=== PATIENT | male | born 1980 | race Caucasian/White ===

== ENCOUNTER → 2019-04-04 12:07 | Outpatient (CLI) | payer MEDICAID, SELFPAY ==
[2019-04-04 13:18] LABS: Basophils % 0.6 % (0.1-2.0); Eosinophils # 0.2 K/mm3 (0.0-0.4); Hematocrit 36.5 % (42.0-52.0); Lymphocytes # 1.7 K/mm3 (0.7-4.5); Lymphocytes % 43.1 % (10-50); Mean Corpuscular Hemoglobin 21.3 pg (27.0-31.2); Mean Corpuscular Volume 70.8 fl (80-94); Mean Platelet Volume 7.7 fl (7.4-10.4); Monocytes # 0.2 K/mm3 (0.1-1.0); Monocytes % 5.4 % (1.7-9.3); Neutrophils # 1.8 K/mm3 (1.8-7.8); Neutrophils % 45.9 % (37.0-80.0); Platelet Count 182 K/mm3 (142-424); Red Blood Count 5.16 M/mm3 (4.60-6.20); Red Cell Distribution Width 15.6 % (11.5-17.5); White Blood Count 3.8 K/mm3 (4.8-10.8)
[2019-04-04 13:46] LABS: Ferritin 6 ng/mL (8-388)
[2019-04-05 07:13] LABS: Iron 43 ug/dL (38-169); UIBC 442 ug/dL (111-343)
[2019-04-06 17:50] LABS: Iron Saturation 9 % (15-55); Vitamin B12 510 pg/mL (232-1245)
== END ==
PROVIDERS: Visit Provider Internal Medicine Adolescent Medicine
DX: D64.9 Anemia, unspecified (principal)
CPT/HCPCS: 36415; 82607; 82728; 83540; 83550; 85025

== ENCOUNTER → 2019-04-05 10:41 | Outpatient (CLI) | payer MEDICAID, SELFPAY ==
[2019-04-05 10:47] LABS: Adenovirus F 40/41, stool Not Detected (NotDetected); Astrovirus Not Detected (NotDetected); Campylobacter Not Detected (NotDetected); Clostridium Difficile A/B, PCR Not Detected (NotDetected); Cryptosporidium Not Detected (NotDetected); Cyclospora Cayetanesis Not Detected (NotDetected); Entamoeba histolytica Not Detected (NotDetected); Enteroaggregative E coli Not Detected (NotDetected); Enteropathogenic E coli Not Detected (NotDetected); Enterotoxigenic E coli Not Detected (NotDetected); Giardia lamblia Not Detected (NotDetected); Norovirus Not Detected (NotDetected); Plesimonas Shigalloides, PCR Not Detected (NotDetected); Rotavirus A Not Detected (NotDetected); Salmonella, PCR Not Detected (NotDetected); Sapovirus Not Detected (NotDetected); Shiga-like toxin E coli Not Detected (NotDetected); Shigella Enterovasive E coli Not Detected (NotDetected); Vibrio Cholerae Not Detected (NotDetected); Vibrio, PCR Not Detected (NotDetected); Yersinia Entercolitica, PCR Not Detected (NotDetected)
== END ==
PROVIDERS: Visit Provider Surgery
DX: R19.7 Diarrhea, unspecified (principal); K21.9 Gastro-esophageal reflux disease without esophagitis; K62.5 Hemorrhage of anus and rectum; D64.9 Anemia, unspecified; R10.84 Generalized abdominal pain
CPT/HCPCS: 87506

== ENCOUNTER → 2019-04-25 10:51 | Outpatient (CLI) | payer MEDICAID, SELFPAY ==
[2019-04-25 11:19] LABS: Alanine Aminotransferase 30 U/L (12-78); Albumin Level 4.2 gm/dL (3.4-5.0); Albumin/Globulin Ratio 1.2 (1.1-1.8); Alkaline Phosphatase 68 U/L (46-116); Amylase 19 U/L (25-115); Anion Gap 10.5 mEq/L (5-15); Aspartate Amino Transferase 18 U/L (15-37); Bilirubin,Total 0.5 mg/dL (0.2-1.0); Blood Urea Nitrogen 19 mg/dL (7-18); Calcium 8.7 mg/dL (8.5-10.1); Carbon Dioxide 29 mmol/L (21.0-32.0); Chloride 105 mmol/L (98-107); Creatinine,Serum 0.88 mg/dL (0.70-1.30); Estimated Glomerular Filt Rate 97 ml/min (>60); GFR (African American) 117 ML/MIN (>60); Globulin 3.5 gm/dl (1.3-3.2); Glucose 102 mg/dL (74-106); Lipase 92 u/L (73-393); Potassium 4.5 mmoL/L (3.5-5.1); Sodium 140 mmol/L (136-145); Total Protein,Serum 7.7 gm/dL (6.4-8.2)
[2019-04-25 11:33] LABS: Basophils % 0.7 % (0.1-2.0); Eosinophils # 0.3 K/mm3 (0.0-0.4); Eosinophils % 5.8 % (0.1-12.0); Hematocrit 37.1 % (42.0-52.0); Hemoglobin 11.4 g/dL (14.1-18.0); Lymphocytes # 1.6 K/mm3 (0.7-4.5); Lymphocytes % 33.9 % (10-50); Mean Corpuscular HGB Conc 30.7 g/dL (31.8-35.4); Mean Corpuscular Hemoglobin 22.1 pg (27.0-31.2); Mean Platelet Volume 9.7 fl (7.4-10.4); Monocytes # 0.2 K/mm3 (0.1-1.0); Monocytes % 4.7 % (1.7-9.3); Neutrophils # 2.6 K/mm3 (1.8-7.8); Neutrophils % 54.8 % (37.0-80.0); Platelet Count 237 K/mm3 (142-424); Red Blood Count 5.16 M/mm3 (4.60-6.20); Red Cell Distribution Width 15.8 % (11.5-17.5); White Blood Count 4.7 K/mm3 (4.8-10.8)
== END ==
PROVIDERS: Visit Provider Surgery
DX: R10.11 Right upper quadrant pain (principal); K85.90 Acute pancreatitis without necrosis or infection, unspecified; K82.9 Disease of gallbladder, unspecified; R19.7 Diarrhea, unspecified; D12.6 Benign neoplasm of colon, unspecified
CPT/HCPCS: 36415; 80053; 82150; 83690; 85025

== ENCOUNTER → 2019-04-30 09:14 | Outpatient (CLI) | payer MEDICAID, SELFPAY ==
--- NOTE | 2019-04-30 09:15 | US_ITS ---
US gallbladder HISTORY: ITS.REASON: right upper quadrant pain ORDERING PHYSICIAN: Red Dockery MD PATIENT AGE: 38 years Comparison: None FINDINGS: PANCREAS: Unremarkable. No obvious mass or abnormal fluid collection. No ductal dilatation LIVER: No focal liver lesions demonstrated. Homogeneous echogenicity. No intrahepatic biliary ductal dilatation evident RIGHT KIDNEY: Unremarkable. Normal size and echogenicity. No hydronephrosis GALLBLADDER: There are few small hyperechoic areas along the gallbladder wall without shadowing suggesting small polyps. There is also small amount of sludge present within the gallbladder. No shadowing stones are apparent. No gallbladder wall thickening, pericholecystic fluid, or biliary dilatation is evident. IMPRESSION: 1. Small gallbladder polyps with a small amount sludge. 2. No gallstones or other significant anomalies
== END ==
PROVIDERS: PCP Internal Medicine Adolescent Medicine; Visit Provider Surgery
DX: K82.9 Disease of gallbladder, unspecified (principal)
CPT/HCPCS: 76705

== ENCOUNTER → 2019-05-14 09:44 | Outpatient (CLI) | payer MEDICAID, SELFPAY ==
--- NOTE | 2019-05-14 09:44 | FL_ITS ---
FL upper GI small bowel HISTORY: ITS.REASON: abdominal pain, diarrhea ORDERING PHYSICIAN: Red Dockery MD PATIENT AGE: 38 years Comparison: None FINDINGS: Esophagus is normal with smooth rinaldi without thickening or ulcerations or filling defects. There is a small 3 cm sliding-type of hiatal hernia with very mild reflux of the barium from the stomach into the lower esophageal segment. There are no strictures. Air contrast exam of the stomach shows normal peristalsis without ulcerations or filling defects or strictures. The duodenal bulb and duodenal sweep are normal. Contrast reaches the colon by 30 to 45 minutes. There is no bowel wall or fold thickening. There is no dilatation or strictures. There are no definite filling defects. Terminal ileum appears normal. FLUOROSCOPY TIME : 1.5 minutes.. IMPRESSION: Exam is normal except for small sliding-type of hiatal hernia with mild gastroesophageal reflux without indirect evidence of esophagitis.
== END ==
PROVIDERS: PCP Internal Medicine Adolescent Medicine; Visit Provider Surgery
DX: R13.10 Dysphagia, unspecified (principal)
CPT/HCPCS: 74245

== ENCOUNTER → 2019-06-04 15:13 | Outpatient (POV) | payer MEDICAID, SELFPAY ==
[2019-06-04 17:47] LABS: Basophils % 0.4 % (0.1-2.0); Eosinophils # 0.1 K/mm3 (0.0-0.4); Eosinophils % 1.8 % (0.1-12.0); Hematocrit 36.8 % (42.0-52.0); Hemoglobin 11.3 g/dL (14.1-18.0); Lymphocytes % 42.7 % (10-50); Mean Corpuscular HGB Conc 30.7 g/dL (31.8-35.4); Mean Corpuscular Volume 71.7 fl (80-94); Monocytes # 0.2 K/mm3 (0.1-1.0); Monocytes % 4.9 % (1.7-9.3); Neutrophils # 2.3 K/mm3 (1.8-7.8); Neutrophils % 50.1 % (37.0-80.0); Platelet Count 227 K/mm3 (142-424); Red Blood Count 5.13 M/mm3 (4.60-6.20); Red Cell Distribution Width 16.5 % (11.5-17.5); White Blood Count 4.6 K/mm3 (4.8-10.8)
[2019-06-04 19:00] LABS: Alanine Aminotransferase 21 U/L (12-78); Albumin Level 4.3 gm/dL (3.4-5.0); Albumin/Globulin Ratio 1.4 (1.1-1.8); Alkaline Phosphatase 63 U/L (46-116); Anion Gap 12.3 mEq/L (5-15); Aspartate Amino Transferase 11 U/L (15-37); Bilirubin,Total 0.3 mg/dL (0.2-1.0); Blood Urea Nitrogen 11 mg/dL (7-18); Calcium 8.9 mg/dL (8.5-10.1); Carbon Dioxide 29 mmol/L (21.0-32.0); Chloride 106 mmol/L (98-107); Creatinine,Serum 0.88 mg/dL (0.70-1.30); Estimated Glomerular Filt Rate 97 ml/min (>60); Ferritin 5 ng/mL (8-388); GFR (African American) 117 ML/MIN (>60); Globulin 3.1 gm/dl (1.3-3.2); Glucose 85 mg/dL (74-106); Potassium 4.3 mmoL/L (3.5-5.1); Sodium 143 mmol/L (136-145); Total Protein,Serum 7.4 gm/dL (6.4-8.2)
[2019-06-06 08:26] LABS: Iron 22 ug/dL (38-169); UIBC 447 ug/dL (111-343)
[2019-06-06 10:04] LABS: Iron Saturation 5 % (15-55); Vitamin B12 425 pg/mL (232-1245)
== END ==
PROVIDERS: PCP Internal Medicine Adolescent Medicine; Visit Provider Nurse Practitioner Family
DX: R10.84 Generalized abdominal pain (principal); R19.7 Diarrhea, unspecified; D64.9 Anemia, unspecified
CPT/HCPCS: 36415; 80053; 82607; 82728; 83540; 83550; 85025

== ENCOUNTER → 2022-11-29 16:14 | Outpatient (CLI) | payer OTHER, SELFPAY ==
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
== END ==
PROVIDERS: PCP Nurse Practitioner Family; Visit Provider Nurse Practitioner Family
DX: M54.2 Cervicalgia (principal); G89.29 Other chronic pain
CPT/HCPCS: 72040

== ENCOUNTER → 2022-12-02 16:19 | Outpatient (CLI) | payer OTHER, SELFPAY ==
--- NOTE | 2022-12-02 16:20 | MR_ITS ---
PROCEDURE INFORMATION: Exam: MR Cervical Spine Without Contrast Exam date and time: 12/02/2022 4:46 PM Age: 42 years old Clinical indication: Neck pain; Additional info: Neck pain, xray normal TECHNIQUE: Imaging protocol: Magnetic resonance imaging of the cervical spine without contrast. COMPARISON: CR XR CERVICAL SPINE 3V 11/29/2022 4:20 PM FINDINGS: Bones/joints: The cervical spine is straightened with mild kyphosis centered at the C3-C4 level which may be a positional finding or related to spasm. The vertebral body heights are maintained. The discs are diffusely desiccated with mild loss of height. The marrow signal is normal. No acute osseous injury is present. Spinal cord: Normal signal. No cord compression. C2-C3: No significant disc bulge or herniation. No severe spinal canal stenosis. No significant neural foraminal narrowing. C3-C4: C3-C4 minimal right-sided paracentral focal disc protrusion and dorsal endplate osteophyte is seen without significant stenosis of the spinal canal. There is mild narrowing of the left neural foramina due to uncovertebral and facet joint osteophyte. C4-C5: C4-C5 minimal dorsal endplate osteophyte is seen without stenosis of the spinal canal. There is mild narrowing of the anyke-cqruhzm-wjnr-left neural foramen also present. C5-C6: C5-C6 minimal left-sided asymmetric osteophyte and disc material is seen without stenosis of the spinal canal. The left neural foramen is mildly narrowed. C6-C7: C6-C7 diffuse disc bulging and dorsal endplate osteophyte causes mild stenosis of the spinal canal. There is severe left neural foraminal narrowing due to osteophyte. C7-T1: C7-T1 patent spinal canal. There is mild narrowing of the neural foramina due to osteophyte. Soft tissues: Unremarkable. Vasculature: Expected flow voids in the vertebral arteries. IMPRESSION: 1. Multilevel degenerative disc disease of the cervical spine with mild spinal canal stenosis at C6-C7 as described. Severe left C6-C7 neural foraminal narrowing. 2. No acute findings. The cervical spine is straightened with mild kyphosis at the C3-C4 level which may be a positional finding or related to spasm.
== END ==
PROVIDERS: PCP Nurse Practitioner Family; Visit Provider Nurse Practitioner Family
DX: M54.2 Cervicalgia (principal); G89.29 Other chronic pain
CPT/HCPCS: 72141; 76376

== ENCOUNTER → 2022-12-04 08:09 | Outpatient (CLI) | payer OTHER, SELFPAY ==
[2022-12-04 08:19] LABS: Microscopic, Urine URINE MICROSCOPIC (MICROSCOPIC)
[2022-12-04 09:56] LABS: Basophils % 1.1 % (0.1-2.0); Eosinophils # 0.1 K/mm3 (0.0-0.4); Eosinophils % 3.3 % (0.1-12.0); Hemoglobin 11.8 g/dL (14.1-18.0); Lymphocytes # 1.6 K/mm3 (0.7-4.5); Lymphocytes % 42.6 % (10-50); Mean Corpuscular Hemoglobin 24.9 pg (27.0-31.2); Mean Corpuscular Volume 77.8 fl (80-94); Mean Platelet Volume 9.1 fl (7.4-10.4); Monocytes # 0.2 K/mm3 (0.1-1.0); Monocytes % 5.3 % (1.7-9.3); Neutrophils # 1.8 K/mm3 (1.8-7.8); Neutrophils % 47.7 % (37.0-80.0); Platelet Count 251 K/mm3 (142-424); Red Blood Count 4.75 M/mm3 (4.60-6.20); White Blood Count 3.8 K/mm3 (4.8-10.8)
[2022-12-04 09:58] LABS: Appearance,Urine CLEAR (Clear); Bilirubin,Urine Negative (Negative); Blood, Urine Negative (Negative); Color,Urine YELLOW (Yellow); Glucose,Urine (UA) Negative (Negative); Ketones,Urine Negative (Negative); Leukocyte Esterase,Urine Negative (Negative); Nitrate,Urine Negative (Negative); PH,Urine 6.5 (5.0-8.5); Protein,Urine Negative (Negative); Specific Gravity, Urine <= 1.005 (1.005-1.030); Urobilinogen,Urine 0.2 EU/dl (0.2)
[2022-12-04 10:11] LABS: Bacteria,Urine Trace /lpf; Squamous Epithelial Cell,Urine Occasional #/hpf (0-5)
[2022-12-04 10:16] LABS: Alanine Aminotransferase 26 U/L (12-78); Albumin Level 4.7 g/dl (3.5-5.0); Alkaline Phosphatase 44 U/L (38-126); Anion Gap 3.8 mEq/L (5-15); Aspartate Amino Transferase 30 U/L (17-59); Bilirubin,Total 0.4 mg/dl (0.2-1.3); Blood Urea Nitrogen 14 mg/dl (9-20); Calcium 8.8 mg/dl (8.4-10.2); Carbon Dioxide 28 mmol/L (22.0-30.0); Chloride 106 mmol/L (98-107); Chol/HDL Ratio 3.8 (1-3.5); Cholesterol 137 mg/dl (140-200); Estimated Glomerular Filt Rate 106 ml/min (>60); GFR (African American) 128 ML/MIN (>60); Globulin 2.4 g/dL (1.3-3.2); Glucose 94 mg/dl (74-100); HDL Cholesterol 36 mg/dl (40-60); Potassium 4.8 mmoL/L (3.5-5.1); Sodium 133 mmol/L (136-145); Total Protein,Serum 7.1 g/dl (6.3-8.2); Triglycerides 91 mg/dl (30-150); VLDL Cholesterol 18 mg/dL (0-40)
[2022-12-04 10:20] LABS: Erythrocyte Sedimentation Rate 9 mm/hr (0-15)
[2022-12-04 10:31] LABS: Direct LDL Cholesterol 90.89 mg/dL (100-129)
[2022-12-04 10:45] LABS: C-Reactive Protein 0.6 mg/L (0-4); Thyroid Stimulating Hormone 0.77 uIU/mL (0.465-4.68)
[2022-12-06 16:01] LABS: Iron 27 ug/dL (49-181)
[2022-12-06 16:38] LABS: Ferritin 5.24 ng/ml (17.9-464)
[2022-12-06 18:08] LABS: Total Iron Binding Capacity 485 ug/dL (261-462)
== END ==
PROVIDERS: PCP Nurse Practitioner Family; Visit Provider Nurse Practitioner Family
DX: G89.29 Other chronic pain (principal); M54.2 Cervicalgia; Z76.89 Persons encountering health services in other specified circumstances; Z13.1 Encounter for screening for diabetes mellitus; K64.9 Unspecified hemorrhoids
CPT/HCPCS: 36415; 80053; 80061; 81001; 82728; 83036; 83540; 83550; 84443; 85025; 85651; 86140

== ENCOUNTER 2022-12-14 08:22 | Day surgery (SDC) | payer OTHER, SELFPAY ==
[2022-12-10 14:47] VITALS: BMI 31.6
[2022-12-14 08:35] VITALS: BP 148/85; PULSE 81; RESP 18; TEMP 36.6; O2SAT 100
[2022-12-14 08:53] VITALS: O2SAT 100
--- NOTE | 2022-12-14 08:53 | P.PN_ITS ---
[facility] Disclaimer: The information contained in this section may have been updated after the patient was seen, as this information can be updated by other users. Medical History Degenerative disc disease Diverticulosis Irritable bowel disease Migraine Surgical History H/O hernia repair History of colonoscopy Family History Other No significant family history Social History Smoking Status: Never smoker alcohol intake: current substance use type: denies use current occupational status: employed Travel in the last 8 weeks: None marital status: caffeine: Yes [facility] Anesthesia Checklist Patient Identification Patient Identification: Arm Band Structural Data Admitted From: Home Planned Operative Procedure/s: colonoscopy Consent for Planned Operative Procedure(s) Verified: Yes Verified Documents: Surgical Consent and History and Physical NPO Status Verified Time NPO: 00:00 Additional verifications Anesthesia Reactions: No Airway Assessment C-Spine Mobility Assessed: Yes TMJ Mobility Assessed: Yes Dentition: Good Dentition Neurological Assessment Level of Consciousness: Awake and Alert Anesthesia Plan Anesthesia Risk discussed: Yes Anesthesia Plan: Verified ASA Class: II Anesthesia Type: MAC
--- NOTE | 2022-12-14 09:16 | HMH.SCOPE ---
Procedure: Date: 12/14/22 Patient Date of :: 1980 Procedure Performed:: Colonoscopy Indications:: Bleeding hemorrhoids History of colon polyps Performing Provider:: Red Dockery MD Referring Provider:: Eleni Bethea APRN Sedation:: Monitored anesthesia care Procedure:: After informed consent was obtained the patient was taken to the endoscopy suite. Sedation ensued after the patient was transferred to the left lateral decubitus position. Pulse, blood pressure, and oxygen saturation were monitored throughout the procedure. Digital rectal exam revealed no significant abnormality. The colonoscope was placed in position. The entire colon was evaluated. The colonoscope was carefully removed and the patient was transferred to recovery in stable condition. Please see findings and specimens below for detail. Findings:: Bowel preparation good Minimal hemorrhoidal cushions Perianal soft tissue edema Few mild/early sigmoid diverticuli Moderate tortuosity Specimens:: None Recommendations:: Repeat colonoscopy in 3-5 years secondary to history of polyps diagnosed at an early age May benefit from examination under anesthesia with perianal biopsy secondary to recent soft tissue edema Consider additional anti-inflammatory therapy May ultimately benefit from endorectal ultrasound and/or MRI (hold off for now) Complications:: No immediate Estimated blood obtained (mL): 0
[2022-12-14 09:20] VITALS: BP 123/71; PULSE 79; RESP 15; TEMP 36.2; O2SAT 97
[2022-12-14 09:30] VITALS: BP 117/80; PULSE 81; RESP 16; O2SAT 96
[2022-12-14 09:40] VITALS: BP 125/7; PULSE 76; RESP 16; O2SAT 97
[2022-12-14 09:52] VITALS: BP 124/80; PULSE 80; RESP 17; O2SAT 100
== END 2022-12-14 09:54 | disposition home or self-care (01) ==
PROVIDERS: PCP Nurse Practitioner Family; Visit Provider Surgery
PROC: 0DJD8ZZ Inspection of Lower Intestinal Tract, Via Natural or Artificial Opening Endoscopic (ICD-10-PCS; CPT 45378; principal; 2022-12-14 09:30)
DX: Z12.11 Encounter for screening for malignant neoplasm of colon (principal); Z86.010 Personal history of colon polyps; K64.9 Unspecified hemorrhoids; Z79.899 Other long term (current) drug therapy
CPT/HCPCS: 45378

== ENCOUNTER → 2022-12-31 08:47 | Outpatient (CLI) | payer OTHER, SELFPAY ==
--- NOTE | 2022-12-31 08:47 | CT_ITS ---
FINAL REPORT TECHNIQUE: Axial CT images of the abdomen and pelvis were obtained after the administration of oral and iv contrast. Coronal reformatted images were also obtained and reviewed.This study was performed with techniques to keep radiation doses as low as reasonably achievable (ALARA). Individualized dose reduction techniques using automated exposure control or adjustment of mA and/or kV according to the patient''s size were employed. CLINICAL HISTORY: Perianal Inflammation COMPARISON: none FINDINGS: CT OF THE ABDOMEN AND PELVIS WITH CONTRAST Abdomen: The lung bases are clear. The heart is normal in size. There is a 10 mm cyst in the medial right hepatic lobe. The spleen is unremarkable. No adrenal mass is present. The pancreas has an unremarkable appearance. The kidneys are normal, without evidence of mass or hydronephrosis. The aorta is normal in caliber. There is no free fluid or adenopathy. No mass or abnormal fluid collection is seen. Pelvis: The appendix is normal. The urinary bladder is unremarkable. There is a focus of presumed fluid in the right inguinal region measuring 25 mm of uncertain significance, may be post inflammatory or postoperative. There is no evidence of mass or adenopathy. There is no evidence of bowel obstruction. Probable right L5 pars defect. IMPRESSION: Presumed fluid right inguinal region of uncertain significance, may be post inflammatory or postoperative. Hepatic 10 mm cyst. Reviewed, Interpreted and Dictated by Derek Limon III, MD Transcribed by Carolyn Kennedy Authenticated and [facility]
== END ==
PROVIDERS: PCP Nurse Practitioner Family; Visit Provider Surgery
DX: K64.8 Other hemorrhoids (principal)
CPT/HCPCS: 74177; Q9967

== ENCOUNTER 2023-10-26 13:38 | Outpatient (CLI) | payer OTHER, SELFPAY ==
[2023-10-26 13:41] LABS: Troponin I < 0.01 ng/ml (0.00-0.034)
== END 2023-10-26 23:59 ==
LOC: LAB.DROPOF 13:38
PROVIDERS: PCP Nurse Practitioner Family; Visit Provider Internal Medicine
DX: R07.89 Other chest pain (principal)
CPT/HCPCS: 84484

== ENCOUNTER 2024-05-18 13:31 | Outpatient (CLI) | payer OTHER, SELFPAY ==
[2024-05-18 13:59] LABS: Eosinophils # 0.1 K/mm3 (0.0-0.4); Eosinophils % 2.5 % (0.1-12.0); Lymphocytes # 1.2 K/mm3 (0.7-4.5); Lymphocytes % 37.4 % (10-50); Mean Corpuscular HGB Conc 29.5 g/dL (31.8-35.4); Mean Corpuscular Hemoglobin 17.8 pg (27.0-31.2); Mean Corpuscular Volume 60.2 fl (80-94); Monocytes # 0.2 K/mm3 (0.1-1.0); Monocytes % 5.3 % (1.7-9.3); Neutrophils # 1.7 K/mm3 (1.8-7.8); Neutrophils % 53.7 % (37.0-80.0); Platelet Count 252 K/mm3 (142-424); Red Blood Count 3.17 M/mm3 (4.60-6.20); Red Cell Distribution Width 19.5 % (11.5-17.5); White Blood Count 3.1 K/mm3 (4.8-10.8)
[2024-05-18 14:14] LABS: Alanine Aminotransferase 21 U/L (12-78); Albumin Level 4.3 g/dl (3.5-5.0); Albumin/Globulin Ratio 1.7 (1.1-1.8); Alkaline Phosphatase 44 U/L (38-126); Anion Gap 11.4 mEq/L (5-15); Aspartate Amino Transferase 28 U/L (17-59); Bilirubin,Total 0.6 mg/dl (0.2-1.3); Blood Urea Nitrogen 15 mg/dl (9-20); Calcium 8.9 mg/dl (8.4-10.2); Carbon Dioxide 24 mmol/L (22.0-30.0); Chloride 108 mmol/L (98-107); Chol/HDL Ratio 3.8 (1-3.5); Cholesterol 128 mg/dl (140-200); Estimated Glomerular Filt Rate 123 ml/min (>60); GFR (African American) 149 ML/MIN (>60); Globulin 2.5 g/dL (1.3-3.2); Glucose 95 mg/dl (74-100); HDL Cholesterol 34 mg/dl (40-60); Magnesium 2.2 mg/dl (1.6-2.3); Potassium 4.4 mmoL/L (3.5-5.1); Sodium 139 mmol/L (136-145); Total Protein,Serum 6.8 g/dl (6.3-8.2); Triglycerides 135 mg/dl (30-150); VLDL Cholesterol 27 mg/dL (0-40)
[2024-05-18 14:15] LABS: Hematocrit 19.1 % (42.0-52.0)
[2024-05-18 14:21] LABS: Hemoglobin 5.6 g/dL (14.1-18.0)
[2024-05-18 14:26] LABS: C-Reactive Protein 0.7 mg/L (0-4); Direct LDL Cholesterol 74.43 mg/dL (100-129)
[2024-05-18 14:29] LABS: Iron 31 ug/dL (49-181)
[2024-05-18 14:38] LABS: Total Iron Binding Capacity 481 ug/dL (261-462)
[2024-05-18 14:46] LABS: Thyroid Stimulating Hormone 1.02 uIU/mL (0.465-4.68)
[2024-05-18 15:05] LABS: Ferritin 3.61 ng/ml (17.9-464); Vitamin B12 799 pg/mL (239-931)
== END 2024-05-18 23:59 | disposition home or self-care (01) ==
LOC: LAB.DROPOF 13:31
PROVIDERS: PCP Nurse Practitioner Family; Visit Provider Nurse Practitioner Family
DX: D64.9 Anemia, unspecified (principal); R51.9 Headache, unspecified; R07.89 Other chest pain
CPT/HCPCS: 80050; 80053; 80061; 82607; 82728; 83540; 83550; 83735; 84443; 85025; 86140

== ENCOUNTER 2024-05-18 14:46 | Observation (INO) | payer SELFPAY ==
[2024-05-18] VITALS (26 sets, daily range): BP systolic 117–147; BP diastolic 71–89; PULSE 78–103; RESP 18–20; TEMP 36.6–36.9; O2SAT 98–100; BMI 43.4; BMI 32.3
--- NOTE | 2024-05-18 15:26 | ED_ITS ---
Discharge Plan Disposition Patient Disposition: Admitted Clinical Impressions Clinical Impression: Acute lower gastrointestinal bleeding, Symptomatic anemia Discharge ED Provider: Katie Maradiaga General Adult HPI General Chief complaint: Recheck/Abnormal Lab/Rx Stated complaint: critical lab sent by [facility] Primary Time Seen by Provider: 05/18/24 15:03 Mode of Arrival: Ambulatory Source of Information: Patient Limitations: No Limitations Description of Symptoms (Recalled from ER Triage Doc. by RN): pt to ed c/o abnormal labs. pt states he has been having rectal bleeding throughout the week. pt states pcp abbie blood and he was called to come to to the ed for eval. History of Present Illness HPI narrative: This patient is a 43-year-old male with a history of hemorrhoids and diverticulosis presenting to the emergency department for evaluation with concern for abnormal labs. Patient reports that since Tuesday, he has been having bright red blood per rectum that fills the toilet bowl anytime he goes to the bathroom. He notes that he does have a chronic history of hemorrhoids and feels that they have been flared up. He states he had multiple colonoscopies in the past with Dr. Dockery for these issues. He notes that he has been feeling very lightheaded and like he could pass out. Given this, he went to his primary care provider's office who obtained labs as well as EKG. He reports that EKG was normal, however his hemoglobin came back dangerously low. On medical record review, his hemoglobin is 5.6 from a baseline of around 11-12. He denies having issues with anemia in the past and denies any prior history of blood transfusion. He denies any other notable sources of bleeding. He denies any fevers, chills, nausea, vomiting, abdominal pain, or significant rectal pain. Stool itself is not significantly changed, just the bright red blood noted to be accompanying the stool. Related Data Home Medications ?Medication ?Instructions ?Recorded ?Confirmed ascorbate calcium (vitamin C) 500 500 mg PO DAILY Supplement 11/29/22 05/18/24 mg tablet multivitamin (Daily Multi-Vitamin 1 tab PO DAILY Supplement 11/29/22 05/18/24 tablet) Allergies Allergy/AdvReac Type Severity Reaction Status Date / Time No Known Drug Allergies Allergy Unknown Verified 05/18/24 09:08 [NKDA] [facility] Disclaimer: The information contained in this section may have been updated after the patient was seen, as this information can be updated by other users. Medical History Stressful life event affecting family Irritable bowel disease Diverticulosis Degenerative disc disease Migraine Surgical History History of colonoscopy H/O hernia repair Family History Other No significant family history Social History (Updated 05/18/24 @ 16:51 by Jreemy Cavazos RN) Smoking Status: Never smoker second hand exposure: No alcohol intake: current alcohol intake frequency: a few times a month counseling given: No substance use type: denies use current occupational status: employed Travel in the last 8 weeks: None adopted: No caregiver/support person: Yes (for his kids) foster care: No household members: spouse housing: house lives independently: Yes marital status: number of children: 3 number of grandchildren: 0 Hx Recent Travel: No caffeine: Yes physical activity: none nicholas/muslim: Jehovah'[employer] Witness special nicholas needs: No working smoke detector in home: Yes fire extinguisher in home: Yes carbon monox detector in home: Yes do you feel safe at home: Yes victim of physical abuse: No victim of emotional abuse: No victim of sexual abuse: No would you like helpful sources: No ROS Obtained: Yes All systems reviewed & no additional complaints except as documented Physical Exam General General appearance: alert and in no apparent distress Head Head exam: atraumatic and normocephalic Eye Eye exam: Present normal appearance, PERRL and EOMI ENT ENT exam: Present normal exam, normal oropharynx, mucous membranes moist and normal external ear exam Neck Neck exam: Present normal inspection, full ROM and trachea midline; Absent tenderness Chest Chest inspection: Present normal inspection and symmetric chest wall rise; Absent tenderness Respiratory Respiratory exam: Present normal lung sounds bilaterally; Absent respiratory distress, wheezes, stridor or accessory muscle use Cardiovascular Cardiovascular exam: Present normal rhythm and tachycardia Abdominal Exam Abdominal exam: Present soft; Absent distention, tenderness or guarding Extremities Exam Extremities exam: Present normal inspection, full ROM and normal capillary refill; Absent tenderness or edema Back Exam Back exam: Present normal inspection and full ROM; Absent tenderness Neurological Exam Neurological exam: Present alert, oriented X3, CN II-XII intact and normal gait; Absent motor sensory deficit Psychiatric Psychiatric exam: Present normal affect and normal mood Skin Skin exam: Present warm, dry and pallor Medical Decision Making Medical Records Medical records reviewed: Yes I reviewed the patient's medical records. Marv Inquiry Pt receiving controlled substance: No Vital Signs: 05/18/24 15:10 05/18/24 15:30 05/18/24 16:00 Temperature 98.2 F Temperature Source Oral Pulse Rate 99 H 95 H Pulse Rate [Left Radial] 100 H Respiratory Rate 20 Blood Pressure 130/78 117/78 Blood Pressure [Right Arm] 130/87 Blood Pressure Mean [Right Arm] 101 Blood Pressure Source Blood Pressure Position 02 Sat by Pulse Oximetry 100 100 98 Oxygen Delivery Method Room Air Room Air Room Air 05/18/24 16:31 05/18/24 16:35 Temperature 98.2 F Temperature Source Oral Pulse Rate 88 92 H Pulse Rate [Left Radial] Respiratory Rate 18 Blood Pressure 147/86 H 147/86 H Blood Pressure [Right Arm] Blood Pressure Mean [Right Arm] Blood Pressure Source Automatic Cuff Blood Pressure Position Sitting 02 Sat by Pulse Oximetry 100 Oxygen Delivery Method Room Air Lab Data Lab results reviewed: Yes I reviewed the patient's lab results. Lab Results 05/18/24 15:30: WBC 3.1 L, RBC 3.37 L, Hgb 5.6 L*, Hct 20.0 L*, MCV 59.4 L, MCH 16.5 L, MCHC 27.8 L, RDW 19.7 H, Plt Count 238, MPV 9.6, Neut % (Auto) 53.8, Lymph % (Auto) 36.4, Ashe % (Auto) 5.9, Eos % (Auto) 2.7, Baso % (Auto) 1.2, N eut # (Auto) 1.7 L, Lymph # (Auto) 1.1, Ashe # (Auto) 0.2, Eos # (Auto) 0.1, Baso # (Auto) 0.0, Retic Count (auto) 3.6 H, PT 11.2, INR 1.00, APTT 23.6, Sodium 139, Potassium 3.6, Chloride 108 H, Carbon Dioxide 25, Anion Gap 9.6, BUN 13, Creatinine 0.80, Estimated Creat Clear 88, Estimated GFR 106, Est GFR ( Amer) 128, Glucose 120 H D, Calcium 8.9, Total Bilirubin 0.4, AST 26, ALT 23, Alkaline Phosphatase 40, Lactate Dehydrogenase 171 L, Total Protein 6.7, Albumin 4.4, Globulin 2.3, Albumin/Globulin Ratio 1.9 H, Blood Type A Positive, Antibody Screen Negative, Crossmatch (AHG) See Detail 05/18/24 15:30 05/18/24 15:30 Orders (Tests/Meds): ED MEDICATIONS Generic Name Dose Route Start Last Admin Trade Name Freq PRN Reason Stop Dose Admin Sodium Chloride 250 mls @ 25 mls/hr 05/18/24 16:00 Sod Chlor 0.9% 250ml Bag IV 05/19/24 15:59 .Q10H AIMEE ORDERS Category Date Time Status Blood transfusion [Red Blood Cells] Stat BBK 05/18/24 15:30 Results Type and Screen Stat BBK 05/18/24 15:30 Results General Surgery Consult [Consult to General Surgery] [ Cons 05/18/24 16:22 Ordered CONS] Stat Surgery Consult (on-call) [Consult to On-Call Gen'l Cons 05/18/24 16:24 Ordered Surgeon] [CONS] Routine Activated Partial Thrombo Time Stat Lab 05/18/24 15:30 Completed Complete Blood Count Auto Diff AMLAB Lab 05/19/24 06:00 Ordered Complete Blood Count Auto Diff Stat Lab 05/18/24 15:30 Completed Comprehensive Metabolic Panel AMLAB Lab 05/19/24 06:00 Ordered Comprehensive Metabolic Panel Stat Lab 05/18/24 15:30 Completed Haptoglobin Stat Lab 05/18/24 15:40 Received LDH [Lactate Dehydrogenase] Stat Lab 05/18/24 15:30 Completed Magnesium AMLAB Lab 05/19/24 06:00 Ordered PT INR [Prothrombin Time INR] Stat Lab 05/18/24 15:30 Completed Reticulocyte % (Auto) Stat Lab 05/18/24 15:30 Completed Medical Decision Narrative: In summary, this patient is a 43-year-old male presenting to the Emergency Department for evaluation of low hemoglobin at 5.6 in the setting of rectal bleeding. Differential diagnoses considered include but are not limited to symptomatic anemia, hemorrhoids, lower GI bleed, upper GI bleed, hemolysis. Ruling out the most morbid conditions drove assessment. I reviewed patient's past medical records and noted previous evaluations by Dr. Dockery. Evaluation 01/13 after colonoscopy noted that the colonoscopy demonstrated polyps, perianal soft tissue edema, hemorrhoidal cushions, and sigmoid diverticula. On exam, the patient is pale and mildly tachycardic, but otherwise he is nontoxic-appearing with reassuring vital signs. Small amount of bright red blood per rectum on digital rectal exam with palpable hemorrhoids, but no obvious active hemorrhage. he is not hypotensive. Abdominal exam is benign with no tenderness. Workup included CBC, CMP, PT, PTT, type and screen, reticulocyte count, LDH, haptoglobin. Consent was obtained for blood transfusion, and patient does elect to proceed with this if indicated based on repeat lab evaluation. On reassessment, the patient is resting comfortably. Repeat hemoglobin remains low. He also has mild leukopenia. Ultimately, I had an interactive discussion with Dr. Dockery with general surgery who advised the patient be admitted for symptomatic anemia in the setting of lower GI bleed. I had an interactive discussion with the hospitalist who admitted the patient for further evaluation and management. Patient admitted in stable condition. Critical Care Critical Care Time Critical Care Time: No
[2024-05-18 15:41] LABS: Basophils % 1.2 % (0.1-2.0); Eosinophils # 0.1 K/mm3 (0.0-0.4); Eosinophils % 2.7 % (0.1-12.0); Lymphocytes # 1.1 K/mm3 (0.7-4.5); Lymphocytes % 36.4 % (10-50); Mean Corpuscular HGB Conc 27.8 g/dL (31.8-35.4); Mean Corpuscular Hemoglobin 16.5 pg (27.0-31.2); Mean Corpuscular Volume 59.4 fl (80-94); Mean Platelet Volume 9.6 fl (7.4-10.4); Monocytes # 0.2 K/mm3 (0.1-1.0); Monocytes % 5.9 % (1.7-9.3); Neutrophils # 1.7 K/mm3 (1.8-7.8); Neutrophils % 53.8 % (37.0-80.0); Platelet Count 238 K/mm3 (142-424); Red Blood Count 3.37 M/mm3 (4.60-6.20); Red Cell Distribution Width 19.7 % (11.5-17.5); Reticulocyte % (Auto) 3.6 % (0.9-3.2); White Blood Count 3.1 K/mm3 (4.8-10.8)
[2024-05-18 15:44] LABS: Albumin Level 4.4 g/dl (3.5-5.0); Chloride 108 mmol/L (98-107); Sodium 139 mmol/L (136-145)
[2024-05-18 15:45] LABS: Potassium 3.6 mmoL/L (3.5-5.1)
[2024-05-18 15:47] LABS: Alanine Aminotransferase 23 U/L (12-78); Anion Gap 9.6 mEq/L (5-15); Aspartate Amino Transferase 26 U/L (17-59); Blood Urea Nitrogen 13 mg/dl (9-20); Carbon Dioxide 25 mmol/L (22.0-30.0); Creatinine Clearance Estimated 88 mL/min (50-200); Estimated Glomerular Filt Rate 106 ml/min (>60); GFR (African American) 128 ML/MIN (>60)
[2024-05-18 15:48] LABS: Albumin/Globulin Ratio 1.9 (1.1-1.8); Alkaline Phosphatase 40 U/L (38-126); Bilirubin,Total 0.4 mg/dl (0.2-1.3); Calcium 8.9 mg/dl (8.4-10.2); Globulin 2.3 g/dL (1.3-3.2); Glucose 120 mg/dl (74-100); Total Protein,Serum 6.7 g/dl (6.3-8.2)
[2024-05-18 15:51] LABS: Activated Partial Thrombo Time 23.6 seconds (22.8-30.6); Prothrombin Time 11.2 seconds (10.1-12.5)
[2024-05-18 15:55] LABS: Lactate Dehydrogenase 171 U/L (313-618)
[2024-05-18 16:05] LABS: Hemoglobin 5.6 g/dL (14.1-18.0)
--- NOTE | 2024-05-18 16:15 | PC.NURSE ---
SURGEON QUALITY ANALYST/TECHNICAL WRITER PAGED
--- NOTE | 2024-05-18 16:20 | PC.NURSE ---
DR JUAN SPEAKING WITH DR VELÁZQUEZ
--- NOTE | 2024-05-18 16:23 | PC.NURSE ---
DR JUAN SPEAKING WITH DR BRIDGES
--- NOTE | 2024-05-18 16:26 | PC.NURSE ---
[employer] NOTIFIED OF ADMISSION
--- NOTE | 2024-05-18 16:34 | PC.NURSE ---
REPORT CALLED TO OSBALDO MORAN
--- NOTE | 2024-05-18 16:35 | EXP.HP ---
History of Present Illness *Admission Date: 05/18/24 *Reason for visit:: Weakness, dizziness *History of present illness: Mr. Donnelly is a 43-year-old male with history of hemorrhoids and diverticulosis. Presented to the ER at the recommendation of his PCP. Presented today to his primary care due to weakness and dizziness when he stands. Has been having bloody bowel movements for the past 5 to 6 days. This is nothing new but has become more frequent and larger in volume. Has been dealing with this for the better part of a year per his report. Labs obtained by his PCP showed severe anemia with hemoglobin 5.6. They called him and told him to go to the ER for evaluation. Patient ambulated into the ER. Is alert and oriented x 4. Notes that he has been having bright red blood per rectum that fills the toilet anytime he goes to the bathroom since Tuesday. Stool is brown, denies melena or blood mixed with his stool. History of hemorrhoids that he feels have flared recently. Multiple colonoscopies, capsule endoscopy, and workup by Dr. Morales at [facility] as well as GI elsewhere. He has been feeling lightheaded over the past week. No mago syncope. [place] short of breath but no mago chest pain or pressure. Baseline hemoglobin of 11-12 as recent as November 2022. No labs since that time. Denies coffee-ground emesis, vomiting, abdominal pain, nausea. No fever or chills. Medicine consulted for admission due to anemia and significance of bleeding. Patient pleasant and hemodynamically stable on exam. Mother side who helps supplement history. Blood pressure 144/80 heart rate 87, respiratory rate 18, 100% on room air. [facility] Disclaimer: The information contained in this section may have been updated after the patient was seen, as this information can be updated by other users. Medical History Stressful life event affecting family Irritable bowel disease Diverticulosis Degenerative disc disease Migraine Surgical History History of colonoscopy H/O hernia repair Family History Other No significant family history Social History Smoking Status: Never smoker second hand exposure: No alcohol intake: current alcohol intake frequency: a few times a month counseling given: No substance use type: denies use current occupational status: employed Travel in the last 8 weeks: None adopted: No caregiver/support person: Yes (for his kids) foster care: No household members: spouse housing: house lives independently: Yes marital status: number of children: 3 number of grandchildren: 0 Hx Recent Travel: No caffeine: Yes physical activity: none nicholas/druze: Ep[employer]opalian special nicholas needs: No working smoke detector in home: Yes fire extinguisher in home: Yes carbon monox detector in home: Yes do you feel safe at home: Yes victim of physical abuse: No victim of emotional abuse: No victim of sexual abuse: No would you like helpful sources: No Review of Systems Review of Systems Review of systems (narrative): 14 point review of systems performed, pertinent positives and negatives as per [facility] Meds Home Medications and Allergies Home Medications ?Medication ?Instructions ?Recorded ?Confirmed ?Type ascorbate calcium (vitamin C) 500 500 mg PO DAILY Supplement 11/29/22 05/18/24 History mg tablet multivitamin (Daily Multi-Vitamin 1 tab PO DAILY Supplement 11/29/22 05/18/24 History tablet) New Prescriptions to Start Prescriptions: Allergies Allergy/AdvReac Type Severity Reaction Status Date / Time No Known Drug Allergies Allergy Unknown Verified 05/18/24 09:08 [NKDA] Exam Data for Last 24 hours Vital signs and Labs for Last 24 Hours: Temp Pulse Resp BP Pulse Ox O2 Del Method 98.2 F 95 H 20 117/78 98 Room Air 05/18/24 15:10 05/18/24 16:00 05/18/24 15:10 05/18/24 16:00 05/18/24 16:00 05/18/24 16:00 Laboratory Results - last 24 hr 05/18/24 15:30: WBC 3.1 L, RBC 3.37 L, Hgb 5.6 L*, Hct 20.0 L*, MCV 59.4 L, MCH 16.5 L, MCHC 27.8 L, RDW 19.7 H, Plt Count 238, MPV 9.6, Neut % (Auto) 53.8, Lymph % (Auto) 36.4, [place] % (Auto) 5.9, Eos % (Auto) 2.7, Baso % (Auto) 1.2, Neut # (Auto) 1.7 L, Lymph # (Auto) 1.1, Major # (Auto) 0.2, Eos # (Auto) 0.1, Baso # (Auto) 0.0, Retic Count (auto) 3.6 H, PT 11.2, INR 1.00, APTT 23.6, Sodium 139, Potassium 3.6, Chloride 108 H, Carbon Dioxide 25, Anion Gap 9.6, BUN 13, Creatinine 0.80, Estimated Creat Clear 88, Estimated GFR 106, Est GFR ( Amer) 128, Glucose 120 H D, Calcium 8.9, Total Bilirubin 0.4, AST 26, ALT 23, Alkaline Phosphatase 40, Lactate Dehydrogenase 171 L, Total Protein 6.7, Albumin 4.4, Globulin 2.3, Albumin/Globulin Ratio 1.9 H, Blood Type A Positive, Crossmatch (AHG) See Detail I & O for Last 24 hours: Intake & Output 05/15/24 05/16/24 05/17/24 05/18/24 23:59 23:59 23:59 23:59 Weight 104.326 kg Constitutional Constitutional: no acute distress, average body habitus and cooperative *Routine HEENT Exam Head: Present normocephalic Eye: Present EOMI and PERRL ENT: Present mucous membranes moist *Routine Neck Exam Neck: Present supple; Absent lymphadenopathy *Routine Respiratory Exam Respiratory: Present CTA bilaterally; Absent rhonchi, wheezes or crackles *Routine Cardiovascular Exam Cardiovascular: Present RRR; Absent murmur *Routine Abdominal Exam Abdominal: Present soft and normoactive bowel sounds; Absent tenderness *Routine Rectal Exam Rectal:: normal sphincter tone and no hemorrhoids (No external hemorrhoids. No blood on anus.) *Routine Genitalia Exam Genitalia:: deferred *Routine Extremities Exam Extremities: Absent cyanosis, clubbing or edema *Routine Skin Exam Skin: Present intact and warm; Absent cyanosis or rash *Routine Neurological Exam Neurological: Present alert, oriented X3 and moving all extremities; Absent altered mental status Assessment and Plan *Assessment and plan (1) Acute lower gastrointestinal bleeding: Status: Acute Category: Medical Code(s): K92.2 - Gastrointestinal hemorrhage, unspecified (2) Symptomatic anemia: Status: Acute Category: Medical Code(s): D64.9 - Anemia, unspecified (3) Iron deficiency anemia: Status: Acute Category: Medical Code(s): D50.9 - Iron deficiency anemia, unspecified (4) 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 Became more dizzy. Presented to his PCP who got labs and sent him to the ER due to his profound anemia with hemoglobin 5.6. On workup in the ER, repeat labs confirm microcytic anemia. Discussed case with ER physician, request admission for transfusion and further workup and monitoring for possible lower GI bleed. I agreed to admit for further management. Will transfuse 2 units packed red blood cells. Surgery consulted. Problems addressed as follows: Lower GI bleed Symptomatic anemia -Patient reports bright red blood sounds like peeing and is mixed with clots. Stool is brown and not black. Blood is separate from his stool. Differential includes diverticular bleed, hemorrhoids, fissure, other lower GI source. -Hemoglobin 5.6, hematocrit 20. Transfusion threshold hemoglobin less than 7. Typed and crossed for 2 units. Repeat H&H pending 2 hours after. -Will obtain CBC, CMP, magnesium in the morning. -Surgery consulted, will see patient in the morning and evaluate for possible scope. Had a scope a year ago with identification of diverticulum and hemorrhoids but no active bleeding. Patient reports he has had extensive workup in the past with GI including capsule endoscopy with no identified source. Depending on response to transfusion and stability of hemoglobin and resolution of bleeding, may necessitate transfer to higher level of care for intervention if unable to identify source of bleeding and having persistent anemia. Iron deficient anemia -Iron studies low, MCV 59; Iron level of 31, iron saturation 6%, ferritin 3.6 -Would benefit from outpatient iron infusions after clinically stable due to severity of deficiency and anemia -Peripheral smear pending to evaluate for alternative source for anemia other than chronic blood loss as he reports he has intermittent blood loss per rectum over the past year Sodium 139, chloride 108, potassium 3.6, kidney function normal BUN 13 and creatinine 0.8. Low concern for upper GI bleed given normal BUN. Obesity complicates all aspects of his care. Full code Clear liquid diet Holding anticoagulation in the setting of acute bleed and anemia Low concern for upper GI bleed however will initiate Protonix 40 mg IV nightly for GI prophylaxis
--- NOTE | 2024-05-18 16:48 | PC.NURSE ---
patient arrived by wheelchair from ed.
--- NOTE | 2024-05-18 17:55 | PC.NURSE ---
In patient's room with dr. Ruiz.
[2024-05-18] MEDS: SODIUM CHLORIDE 0.9% 10ML VIAL 10 ML IV (20:21)
[2024-05-18] MEDS: PANTOPRAZOLE 40MG VIAL 40 MG IV (20:21)
--- NOTE | 2024-05-18 22:20 | PC.NURSE ---
Pt 2nd unit of blood began @2200. this nurse and OSBALDO Catherine verified. Pt tolerated 1st unit well and is tolerating this 2nd unit well thus far. Pt vitals are stable, pt denies pain and/or any other symptoms at this time.
[2024-05-19] VITALS (7 sets, daily range): BP systolic 117–148; BP diastolic 71–91; PULSE 60–90; RESP 16–20; TEMP 36.6–36.7; O2SAT 100; BMI 32.8
[2024-05-19 01:16] LABS: Hematocrit 23.4 % (42.0-52.0)
--- NOTE | 2024-05-19 04:19 | PC.NURSE ---
Pt is alert and oriented x4 and currently tolerating RA well. Pt H/H was critcally low (5.6/20) at the beginning of this shift, pt recieved 2 units of blood. Pt tolerated both units well and H/H is now trending upwards (05/15.4). Pt has no complaints, denies pain and admits to feeling better. No acute changes to note at this time.
[2024-05-19 07:35] LABS: Basophils % 0.8 % (0.1-2.0); Eosinophils # 0.1 K/mm3 (0.0-0.4); Eosinophils % 2.7 % (0.1-12.0); Hematocrit 24.5 % (42.0-52.0); Hemoglobin 7.3 g/dL (14.1-18.0); Lymphocytes # 1.5 K/mm3 (0.7-4.5); Lymphocytes % 41.9 % (10-50); Mean Corpuscular HGB Conc 29.9 g/dL (31.8-35.4); Mean Corpuscular Hemoglobin 19.8 pg (27.0-31.2); Mean Corpuscular Volume 66.1 fl (80-94); Mean Platelet Volume 8.1 fl (7.4-10.4); Monocytes # 0.2 K/mm3 (0.1-1.0); Monocytes % 6.6 % (1.7-9.3); Neutrophils # 1.7 K/mm3 (1.8-7.8); Neutrophils % 48.1 % (37.0-80.0); Platelet Count 240 K/mm3 (142-424); White Blood Count 3.6 K/mm3 (4.8-10.8)
[2024-05-19 07:37] LABS: Albumin Level 3.9 g/dl (3.5-5.0); Chloride 111 mmol/L (98-107); Sodium 140 mmol/L (136-145)
[2024-05-19 07:40] LABS: Alanine Aminotransferase 21 U/L (12-78); Albumin/Globulin Ratio 1.7 (1.1-1.8); Alkaline Phosphatase 41 U/L (38-126); Aspartate Amino Transferase 25 U/L (17-59); Bilirubin,Total 0.7 mg/dl (0.2-1.3); Blood Urea Nitrogen 10 mg/dl (9-20); Calcium 8.5 mg/dl (8.4-10.2); Carbon Dioxide 24 mmol/L (22.0-30.0); Creatinine Clearance Estimated 159 mL/min (50-200); Estimated Glomerular Filt Rate 92 ml/min (>60); GFR (African American) 111 ML/MIN (>60); Globulin 2.3 g/dL (1.3-3.2); Glucose 91 mg/dl (74-100); Magnesium 2.3 mg/dl (1.6-2.3); Total Protein,Serum 6.2 g/dl (6.3-8.2)
--- NOTE | 2024-05-19 08:44 | EXP.SURG.CON ---
History of Present Illness *Admission Date: 05/18/24 *Reason for visit:: Anemia *History of present illness: This is a 43-year-old gentleman seen in consultation from the primary service after presenting to the emergency department with weakness/dizziness. Evaluation revealed significant anemia. He reports longstanding intermittent bright red blood per rectum and sometimes clot . He states that he is been having troubles for quite a while and just did not look into it . He has undergone esophagogastroduodenoscopy and colonoscopy followed by capsule endoscopy and what he describes as other studies at the [facility] in 2018/2018 for chronic anemia/gastrointestinal hemorrhage. He reports that nothing was really found . He has undergone esophagogastroduodenoscopy/colonoscopy in 2018 and repeat colonoscopy in 2022 at this facility with findings of mild hemorrhoidal disease and mild diverticulosis. No definitive source noted. Perianal region soft tissue edema was noted on his most recent colonoscopy. Follow-up CT scan revealed no definitive anomaly. Forwarded from admission H&P: Mr. Donnelly is a 43-year-old male with history of hemorrhoids and diverticulosis. Presented to the ER at the recommendation of his PCP. Presented today to his primary care due to weakness and dizziness when he stands. Has been having bloody bowel movements for the past 5 to 6 days. This is nothing new but has become more frequent and larger in volume. Has been dealing with this for the better part of a year per his report. Labs obtained by his PCP showed severe anemia with hemoglobin 5.6. They called him and told him to go to the ER for evaluation. Patient ambulated into the ER. Is alert and oriented x 4. Notes that he has been having bright red blood per rectum that fills the toilet anytime he goes to the bathroom since Tuesday. Stool is brown, denies melena or blood mixed with his stool. History of hemorrhoids that he feels have flared recently. Multiple colonoscopies, capsule endoscopy, and workup by Dr. Morales at [facility] as well as GI elsewhere. He has been feeling lightheaded over the past week. No mago syncope. [place] short of breath but no mago chest pain or pressure. Baseline hemoglobin of 11-12 as recent as November 2022. No labs since that time. Denies coffee-ground emesis, vomiting, abdominal pain, nausea. No fever or chills. Medicine consulted for admission due to anemia and significance of bleeding. Patient pleasant and hemodynamically stable on exam. Mother side who helps supplement history. Blood pressure 144/80 heart rate 87, respiratory rate 18, 100% on room air. [facility] Disclaimer: The information contained in this section may have been updated after the patient was seen, as this information can be updated by other users. Medical History (Updated 05/19/24 @ 08:49 by Red Dockery MD) Anemia Stressful life event affecting family Irritable bowel disease Diverticulosis Degenerative disc disease Migraine Surgical History History of colonoscopy H/O hernia repair Family History Other No significant family history Social History Smoking Status: Never smoker second hand exposure: No alcohol intake: current alcohol intake frequency: a few times a month counseling given: No substance use type: denies use current occupational status: employed Travel in the last 8 weeks: None adopted: No caregiver/support person: Yes (for his kids) foster care: No household members: spouse housing: house lives independently: Yes marital status: number of children: 3 number of grandchildren: 0 Hx Recent Travel: No caffeine: Yes physical activity: none nicholas/denominational: Orthodoxy special nicholas needs: No working smoke detector in home: Yes fire extinguisher in home: Yes carbon monox detector in home: Yes do you feel safe at home: Yes victim of physical abuse: No victim of emotional abuse: No victim of sexual abuse: No would you like helpful sources: No Meds Home Medications and Allergies Home Medications ?Medication ?Instructions ?Recorded ?Confirmed ?Type ascorbate calcium (vitamin C) 500 500 mg PO DAILY 11/29/22 05/18/24 History mg tablet multivitamin (Daily Multi-Vitamin 1 tab PO DAILY 11/29/22 05/18/24 History tablet) New Prescriptions to Start Prescriptions: Allergies Allergy/AdvReac Type Severity Reaction Status Date / Time No Known Drug Allergies Allergy Unknown Verified 05/18/24 09:08 [NKDA] Exam (Inpt) Vital signs and Labs for Last 24 Hours: Temp Pulse Resp BP Pulse Ox O2 Del Method 97.9 F 83 17 137/90 100 Room Air 05/19/24 08:00 05/19/24 08:00 05/19/24 08:00 05/19/24 08:00 05/19/24 08:00 05/19/24 08:00 Laboratory Results - last 24 hr 05/18/24 15:30: WBC 3.1 L, RBC 3.37 L, Hgb 5.6 L*, Hct 20.0 L*, MCV 59.4 L, MCH 16.5 L, MCHC 27.8 L, RDW 19.7 H, Plt Count 238, MPV 9.6, Neut % (Auto) 53.8, Lymph % (Auto) 36.4, [place] % (Auto) 5.9, Eos % (Auto) 2.7, Baso % (Auto) 1.2, Neut # (Auto) 1.7 L, Lymph # (Auto) 1.1, [place] # (Auto) 0.2, Eos # (Auto) 0.1, Baso # (Auto) 0.0, Retic Count (auto) 3.6 H, PT 11.2, INR 1.00, APTT 23.6, Sodium 139, Potassium 3.6, Chloride 108 H, Carbon Dioxide 25, Anion Gap 9.6, BUN 13, Creatinine 0.80, Estimated Creat Clear 88, Estimated GFR 106, Est GFR ( Amer) 128, Glucose 120 H D, Calcium 8.9, Total Bilirubin 0.4, AST 26, ALT 23, Alkaline Phosphatase 40, Lactate Dehydrogenase 171 L, Total Protein 6.7, Albumin 4.4, Globulin 2.3, Albumin/Globulin Ratio 1.9 H, Blood Type A Positive, Antibody Screen Negative, Crossmatch (AHG) See Detail 05/18/24 : Blood Type Confirm A Positive 05/19/24 01:10: Hgb 7.0 L, Hct 23.4 L 05/19/24 06:19: WBC 3.6 L, RBC 3.70 L, Hgb 7.3 L, Hct 24.5 L, MCV 66.1 L, MCH 19.8 L, MCHC 29.9 L, RDW 25.0 H D, Plt Count 240, MPV 8.1, Neut % (Auto) 48.1, Lymph % (Auto) 41.9, [place] % (Auto) 6.6, Eos % (Auto) 2.7, Baso % (Auto) 0.8, Neut # (Auto) 1.7 L, Lymph # (Auto) 1.5, [place] # (Auto) 0.2, Eos # (Auto) 0.1, Baso # (Auto) 0.0, Sodium 140, Potassium 4.0, Chloride 111 H, Carbon Dioxide 24, Anion Gap 9.0, BUN 10, Creatinine 0.90, Estimated Creat Clear 159, Estimated GFR 92, Est GFR ( Amer) 111, Glucose 91 D, Calcium 8.5, Magnesium 2.3, Total Bilirubin 0.7, AST 25, ALT 21, Alkaline Phosphatase 41, Total Protein 6.2 L, Albumin 3.9 D, Globulin 2.3, Albumin/Globulin Ratio 1.7 I & O for Labs for Last 24 Hours: Intake & Output 05/16/24 05/17/24 05/18/24 05/19/24 11:59 11:59 11:59 11:59 Intake Total 1939 Output Total 0 / 0 Balance 1939 Weight 234 lb 11.2 oz Constitutional: no acute distress Respiratory: Absent respiratory distress Cardiac: Absent Tachycardia Results Labs 05/19/24 06:19 05/19/24 06:19 Labs: Laboratory Results - last 24 hr 05/18/24 15:30: WBC 3.1 L, RBC 3.37 L, Hgb 5.6 L*, Hct 20.0 L*, MCV 59.4 L, MCH 16.5 L, MCHC 27.8 L, RDW 19.7 H, Plt Count 238, MPV 9.6, Neut % (Auto) 53.8, Lymph % (Auto) 36.4, [place] % (Auto) 5.9, Eos % (Auto) 2.7, Baso % (Auto) 1.2, Neut # (Auto) 1.7 L, Lymph # (Auto) 1.1, [place] # (Auto) 0.2, Eos # (Auto) 0.1, Baso # (Auto) 0.0, Retic Count (auto) 3.6 H, PT 11.2, INR 1.00, APTT 23.6, Sodium 139, Potassium 3.6, Chloride 108 H, Carbon Dioxide 25, Anion Gap 9.6, BUN 13, Creatinine 0.80, Estimated Creat Clear 88, Estimated GFR 106, Est GFR ( Amer) 128, Glucose 120 H D, Calcium 8.9, Total Bilirubin 0.4, AST 26, ALT 23, Alkaline Phosphatase 40, Lactate Dehydrogenase 171 L, Total Protein 6.7, Albumin 4.4, Globulin 2.3, Albumin/Globulin Ratio 1.9 H, Blood Type A Positive, Antibody Screen Negative, Crossmatch (AHG) See Detail 05/18/24 : Blood Type Confirm A Positive 05/19/24 01:10: Hgb 7.0 L, Hct 23.4 L 05/19/24 06:19: WBC 3.6 L, RBC 3.70 L, Hgb 7.3 L, Hct 24.5 L, MCV 66.1 L, MCH 19.8 L, MCHC 29.9 L, RDW 25.0 H D, Plt Count 240, MPV 8.1, Neut % (Auto) 48.1, Lymph % (Auto) 41.9, [place] % (Auto) 6.6, Eos % (Auto) 2.7, Baso % (Auto) 0.8, Neut # (Auto) 1.7 L, Lymph # (Auto) 1.5, [place] # (Auto) 0.2, Eos # (Auto) 0.1, Baso # (Auto) 0.0, Sodium 140, Potassium 4.0, Chloride 111 H, Carbon Dioxide 24, Anion Gap 9.0, BUN 10, Creatinine 0.90, Estimated Creat Clear 159, Estimated GFR 92, Est GFR ( Amer) 111, Glucose 91 D, Calcium 8.5, Magnesium 2.3, Total Bilirubin 0.7, AST 25, ALT 21, Alkaline Phosphatase 41, Total Protein 6.2 L, Albumin 3.9 D, Globulin 2.3, Albumin/Globulin Ratio 1.7 Assessment and Plan *Assessment and plan (1) Acute on chronic anemia: Status: Acute Category: Medical Code(s): D64.9 - Anemia, unspecified (2) Gastrointestinal hemorrhage: Status: Acute Qualifiers: GI bleed type/associated pathology: unspecified gastrointestinal hemorrhage type Qualified Code(s): K92.2 - Gastrointestinal hemorrhage, unspecified Category: Medical Code(s): K92.2 - Gastrointestinal hemorrhage, unspecified Plan The patient has undergone 3 separate colonoscopies and 2 separate esophagogastroduodenoscopies at a combination of the [facility] and this facility over the last 5 years. He reports capsule endoscopy at the [facility] approximately 5 years ago and states that it was negative. Prior evaluations have revealed mild gastritis, mild hemorrhoids, and mild diverticulosis. No definitive source for gastrointestinal hemorrhage noted. He currently reports palpable hemorrhoid and significant bleeding with bowel movements. I have discussed the risks and benefits of examination under anesthesia and possible hemorrhoidectomy. The patient agrees to proceed. This will be scheduled in the near future to be completed most likely as an outpatient.
[2024-05-19] MEDS: IRON SUCROSE COMPLEX 200 MG in 0.9 % SODIUM CHLORIDE 100 ML 220 MG IV (10:30)
--- NOTE | 2024-05-19 12:52 | EXP.DC.SUM ---
General Admission date:: 05/18/24 Discharge date: 05/19/24 HPI HPI HPI: Mr. Donnelly is a 43-year-old male with history of hemorrhoids and diverticulosis. Presented to the ER at the recommendation of his PCP. Presented today to his primary care due to weakness and dizziness when he stands. Has been having bloody bowel movements for the past 5 to 6 days. This is nothing new but has become more frequent and larger in volume. Has been dealing with this for the better part of a year per his report. Labs obtained by his PCP showed severe anemia with hemoglobin 5.6. They called him and told him to go to the ER for evaluation. Patient ambulated into the ER. Is alert and oriented x 4. Notes that he has been having bright red blood per rectum that fills the toilet anytime he goes to the bathroom since Tuesday. Stool is brown, denies melena or blood mixed with his stool. History of hemorrhoids that he feels have flared recently. Multiple colonoscopies, capsule endoscopy, and workup by Dr. Morales at [facility] as well as GI elsewhere. He has been feeling lightheaded over the past week. No mago syncope. [place] short of breath but no mago chest pain or pressure. Baseline hemoglobin of 11-12 as recent as November 2022. No labs since that time. Denies coffee-ground emesis, vomiting, abdominal pain, nausea. No fever or chills. Medicine consulted for admission due to anemia and significance of bleeding. Patient pleasant and hemodynamically stable on exam. Mother side who helps supplement history. Blood pressure 144/80 heart rate 87, respiratory rate 18, 100% on room air. From surgical eval: He has undergone esophagogastroduodenoscopy and colonoscopy followed by capsule endoscopy and what he describes as other studies at the [facility] in 2018/2018 for chronic anemia/gastrointestinal hemorrhage. He reports that nothing was really found . He has undergone esophagogastroduodenoscopy/colonoscopy in 2018 and repeat colonoscopy in 2022 at this facility with findings of mild hemorrhoidal disease and mild diverticulosis. No definitive source noted. Perianal region soft tissue edema was noted on his most recent colonoscopy. Follow-up CT scan revealed no definitive anomaly. Hospital Course Hospital Course Hospital Course: 43-year-old male who presented with bloody stools for the past 5 to 6 days. Became more dizzy. Presented to his PCP who got labs and sent him to the ER due to his profound anemia with hemoglobin 5.6. On workup in the ER, repeat labs confirm microcytic anemia. Discussed case with ER physician, request admission for transfusion and further workup and monitoring for possible lower GI bleed. I agreed to admit for further management. Surgery was consulted. Patient was transfused 2 units packed red blood cells. Hemoglobin remained stable. Close follow-up scheduled for further evaluation. Problems addressed as follows: Lower GI bleed Symptomatic anemia -Patient reports bright red blood sounds like peeing and is mixed with clots. Stool is brown and not black. Blood is separate from his stool. Differential includes diverticular bleed, hemorrhoids, fissure, other lower GI source. Extensive workup in the past as he has undergone esophagogastroduodenoscopy and colonoscopy followed by capsule endoscopy and what he describes as other studies at the [facility] in 2018/2018 for chronic anemia/gastrointestinal hemorrhage. He reports that nothing was really found . He has undergone esophagogastroduodenoscopy/colonoscopy in 2018 and repeat colonoscopy in 2022 at this facility with findings of mild hemorrhoidal disease and mild diverticulosis. No definitive source noted. Perianal region soft tissue edema was noted on his most recent colonoscopy. Follow-up CT scan revealed no definitive anomaly. Noted to have hemorrhoids on exam. Hemoglobin [place] the 5.6, hematocrit 20. Transfused 2 units for threshold hemoglobin of 7. Responded well. Post H&H was 7.0. Improved to 7.3 by morning. Remained at 7.3 on repeat labs in the afternoon prior to discharge home. Had a bowel movement overnight with some blood loss but not the same volume as previous. Feeling better, not as dizzy. Stable with ambulation. Surgery was consulted and assisted with care. At this time patient would benefit from exam under anesthesia. Discussed keeping patient till Tuesday versus discharging home and having close outpatient follow-up. Given stability of hemoglobin, will discharge home, scheduled to come back Tuesday morning first thing. Tentative OR time of 11. Surgery plans to repeat labs at that time and will transfuse if necessary. Iron deficient anemia -Iron studies low, MCV 59; Iron level of 31, iron saturation 6%, ferritin 3.6. Patient has tried oral iron over the past year with no significant benefit. Administered 1 dose Venofer 200 mg IV on day of discharge. Would benefit from completing full course. Recommend 4 more doses to complete 5 dose regimen. Peripheral smear obtained and pending at discharge. Concern his anemia and iron deficiency is likely just from chronic blood loss and insufficient iron stores, however needs evaluation for further etiologies. Initiated on clear liquid diet. Recommend clear liquids when he gets home. N.p.o. at midnight on Tuesday. Close follow-up with surgery on Tuesday for exam under anesthesia. Tentatively scheduled for procedure at 11 AM on Tuesday. Patient informed to be at the hospital first thing Tuesday morning for registration and further management. Will repeat labs at that time. Consult sent to case management to assist with scheduling Venofer infusions as outpatient. Total time spent on discharge 35 minutes in counseling, documentation, chart review, and direct care with patient. Exam Data for Last 24 hours Vital signs and Labs for Last 24 Hours: Temp Pulse Resp BP Pulse Ox O2 Del Method 98.0 F 78 17 135/77 100 Room Air 05/19/24 12:00 05/19/24 12:05/19/24 12:05/19/24 12:05/19/24 12:05/19/24 12:45 Laboratory Results - last 24 hr 05/18/24 15:30: WBC 3.1 L, RBC 3.37 L, Hgb 5.6 L*, Hct 20.0 L*, MCV 59.4 L, MCH 16.5 L, MCHC 27.8 L, RDW 19.7 H, Plt Count 238, MPV 9.6, Neut % (Auto) 53.8, Lymph % (Auto) 36.4, [place] % (Auto) 5.9, Eos % (Auto) 2.7, Baso % (Auto) 1.2, Neut # (Auto) 1.7 L, Lymph # (Auto) 1.1, [place] # (Auto) 0.2, Eos # (Auto) 0.1, Baso # (Auto) 0.0, Retic Count (auto) 3.6 H, PT 11.2, INR 1.00, APTT 23.6, Sodium 139, Potassium 3.6, Chloride 108 H, Carbon Dioxide 25, Anion Gap 9.6, BUN 13, Creatinine 0.80, Estimated Creat Clear 88, Estimated GFR 106, Est GFR ( Amer) 128, Glucose 120 H D, Calcium 8.9, Total Bilirubin 0.4, AST 26, ALT 23, Alkaline Phosphatase 40, Lactate Dehydrogenase 171 L, Total Protein 6.7, Albumin 4.4, Globulin 2.3, Albumin/Globulin Ratio 1.9 H, Blood Type A Positive, Antibody Screen Negative, Crossmatch ([facility]) See Detail 05/18/24 : Blood Type Confirm A Positive 05/19/24 01:10: Hgb 7.0 L, Hct 23.4 L 05/19/24 06:19: WBC 3.6 L, RBC 3.70 L, Hgb 7.3 L, Hct 24.5 L, MCV 66.1 L, MCH 19.8 L, MCHC 29.9 L, RDW 25.0 H D, Plt Count 240, MPV 8.1, Neut % (Auto) 48.1, Lymph % (Auto) 41.9, [place] % (Auto) 6.6, Eos % (Auto) 2.7, Baso % (Auto) 0.8, Neut # (Auto) 1.7 L, Lymph # (Auto) 1.5, [place] # (Auto) 0.2, Eos # (Auto) 0.1, Baso # (Auto) 0.0, Sodium 140, Potassium 4.0, Chloride 111 H, Carbon Dioxide 24, Anion Gap 9.0, BUN 10, Creatinine 0.90, Estimated Creat Clear 159, Estimated GFR 92, Est GFR ( Amer) 111, Glucose 91 D, Calcium 8.5, Magnesium 2.3, Total Bilirubin 0.7, AST 25, ALT 21, Alkaline Phosphatase 41, Total Protein 6.2 L, Albumin 3.9 D, Globulin 2.3, Albumin/Globulin Ratio 1.7 I & O for Last 24 hours: Intake & Output 05/16/24 05/17/24 05/18/24 05/19/24 23:59 23:59 23:59 23:59 Intake Total 730 / 1210 1790 / 1790 Output Total 0 / 0 0 / 0 Balance 730 / 1210 1789 / 1790 Weight 105.318 kg 106.458 kg Constitutional Constitutional: no acute distress and cooperative *Routine HEENT Exam Head: Present normocephalic Eye: Present EOMI and PERRL ENT: Present mucous membranes moist *Routine Neck Exam Neck: Present supple; Absent lymphadenopathy *Routine Respiratory Exam Respiratory: Present CTA bilaterally; Absent rhonchi, wheezes or crackles *Routine Cardiovascular Exam Cardiovascular: Present RRR *Routine Abdominal Exam Abdominal: Present soft and normoactive bowel sounds; Absent tenderness *Routine Rectal Exam Patient deferred: visual exam *Routine Exam Patient deferred: penile exam *Routine Extremities Exam Extremities: Absent cyanosis, clubbing or edema *Routine Skin Exam Skin: Present warm; Absent rash *Routine Neurological Exam Neurological: Present alert, oriented X3 and moving all extremities; Absent altered mental status Results Data Completed and Pending Labs on day of discharge: Labs from last 24 hours 05/19/24 05/19/24 05/18/24 06:19 01:10 Unknown WBC 3.6 L RBC 3.70 L Hgb 7.3 L 7.0 L Hct 24.5 L 23.4 L MCV 66.1 L MCH 19.8 L MCHC 29.9 L RDW 25.0 H D Plt Count 240 MPV 8.1 Neut % (Auto) 48.1 Lymph % (Auto) 41.9 [place] % (Auto) 6.6 Eos % (Auto) 2.7 Baso % (Auto) 0.8 Neut # (Auto) 1.7 L Lymph # (Auto) 1.5 [place] # (Auto) 0.2 Eos # (Auto) 0.1 Baso # (Auto) 0.0 Retic Count (auto) PT INR APTT Sodium 140 Potassium 4.0 Chloride 111 H Carbon Dioxide 24 Anion Gap 9.0 BUN 10 Creatinine 0.90 Estimated Creat Clear 159 Estimated GFR 92 Est GFR ( Amer) 111 Glucose 91 D Calcium 8.5 Magnesium 2.3 Total Bilirubin 0.7 AST 25 ALT 21 Alkaline Phosphatase 41 Lactate Dehydrogenase Total Protein 6.2 L Albumin 3.9 D Globulin 2.3 Albumin/Globulin Ratio 1.7 Blood Type Blood Type Confirm A Positive Antibody Screen Crossmatch ([facility]) 05/18/24 15:30 WBC 3.1 L RBC 3.37 L Hgb 5.6 L* Hct 20.0 L* MCV 59.4 L MCH 16.5 L MCHC 27.8 L RDW 19.7 H Plt Count 238 MPV 9.6 Neut % (Auto) 53.8 Lymph % (Auto) 36.4 [place] % (Auto) 5.9 Eos % (Auto) 2.7 Baso % (Auto) 1.2 Neut # (Auto) 1.7 L Lymph # (Auto) 1.1 [place] # (Auto) 0.2 Eos # (Auto) 0.1 Baso # (Auto) 0.0 Retic Count (auto) 3.6 H PT 11.2 INR 1.00 APTT 23.6 Sodium 139 Potassium 3.6 Chloride 108 H Carbon Dioxide 25 Anion Gap 9.6 BUN 13 Creatinine 0.80 Estimated Creat Clear 88 Estimated GFR 106 Est GFR ( Amer) 128 Glucose 120 H D Calcium 8.9 Magnesium Total Bilirubin 0.4 AST 26 ALT 23 Alkaline Phosphatase 40 Lactate Dehydrogenase 171 L Total Protein 6.7 Albumin 4.4 Globulin 2.3 Albumin/Globulin Ratio 1.9 H Blood Type A Positive Blood Type Confirm Antibody Screen Negative Crossmatch ([facility]) See Detail DS: Diagnosis Discharge Diagnosis (1) Acute on chronic anemia: Status: Acute Code(s): D64.9 - Anemia, unspecified (2) Gastrointestinal hemorrhage: Status: Acute Code(s): K92.2 - Gastrointestinal hemorrhage, unspecified Qualifiers: GI bleed type/associated pathology: unspecified gastrointestinal hemorrhage type Qualified Code(s): K92.2 - Gastrointestinal hemorrhage, unspecified Meds Home Medications and Allergies Home Medications ?Medication ?Instructions ?Recorded ?Confirmed ?Type ascorbate calcium (vitamin C) 500 500 mg PO DAILY 11/29/22 05/18/24 History mg tablet multivitamin (Daily Multi-Vitamin 1 tab PO DAILY 11/29/22 05/18/24 History tablet) New Prescriptions to Start Prescriptions: Allergies Allergy/AdvReac Type Severity Reaction Status Date / Time No Known Drug Allergies Allergy Unknown Verified 05/18/24 09:08 [NKDA] Discharge Plan Disposition Patient Disposition: Home, Self-Care Condition: Fair Discharge Order Discharge Orders: Discharge Order (Routine); Ordered 05/19/24 Ordered By: Alexx Scott Follow up Plan Follow up with: Red Dockery MD [Staff Physician] - Enter time for follow up (Tuesday 11:30) Prescriptions/Medication Reconciliation: Continued multivitamin [Daily Multi-Vitamin] Tablet 1 tab PO DAILY ascorbate calcium (vitamin C) 500 mg tablet 500 mg PO DAILY Problem Reconciliation Problems Reviewed?: Yes Patient Discharge Instructions ACTIVITY: Continue current activity DIET: continue same diet Patient Instructions: DI for Hemorrhoids, DI for Iron Deficiency Anemia-Adult, DI for Gastrointestinal Bleeding Print Language: [place] Providers Primary Care Provider: Ottoniel Goodman Admit Provider: Alexx Scott Attending Provider: Alexx Scott
[2024-05-19 16:29] LABS: Hematocrit 24.1 % (42.0-52.0); Hemoglobin 7.3 g/dL (14.1-18.0)
[2024-05-20 08:09] LABS: Haptoglobin 123 mg/dL (23-355)
[2024-05-20 18:51] LABS: Peripheral Smear Review Scanned Result
--- NOTE | 2024-05-22 13:08 | CARE MANAGER ---
Contacted patient related to hospital stay. He had no new medications and is aware of follow up appointment. Denies any questions or concerns. OSBALDO Kearney
== END 2024-05-19 17:07 | disposition home or self-care (01) ==
LOC: ER 16:24 → 2ND 16:35
PROVIDERS: Admitting Provider Internal Medicine Adolescent Medicine; Emergency Provider Emergency Medicine; PCP Internal Medicine; Visit Provider Internal Medicine Adolescent Medicine
DX: K92.2 Gastrointestinal hemorrhage, unspecified (principal); Z79.899 Other long term (current) drug therapy; D50.9 Iron deficiency anemia, unspecified; E66.1 Drug-induced obesity; Z68.32 Body mass index [BMI] 32.0-32.9, adult; K64.9 Unspecified hemorrhoids
CPT/HCPCS: 36430; 36415; 80053; 83010; 83615; 83735; 85014; 85018; 85025; 85044; 85610; 85730; 86850; 99285; G0378; J1756; P9016

== ENCOUNTER 2024-05-21 08:19 | Day surgery (SDC) | payer SELFPAY ==
[2024-05-21] VITALS (12 sets, daily range): BP systolic 114–142; BP diastolic 63–89; PULSE 88–100; RESP 14–18; TEMP 36.4–36.8; O2SAT 90–100; BMI 32.1
[2024-05-21] MEDS: LACTATED RINGERS 1000ML 1,000 ML 25 ML IV (09:00)
[2024-05-21 09:09] LABS: Basophils % 0.9 % (0.1-2.0); Eosinophils # 0.1 K/mm3 (0.0-0.4); Eosinophils % 3.4 % (0.1-12.0); Hematocrit 28.5 % (42.0-52.0); Hemoglobin 8.5 g/dL (14.1-18.0); Lymphocytes # 1.3 K/mm3 (0.7-4.5); Lymphocytes % 36.7 % (10-50); Mean Corpuscular HGB Conc 29.9 g/dL (31.8-35.4); Mean Corpuscular Volume 66.8 fl (80-94); Mean Platelet Volume 7.9 fl (7.4-10.4); Monocytes # 0.2 K/mm3 (0.1-1.0); Neutrophils # 1.9 K/mm3 (1.8-7.8); Neutrophils % 54.1 % (37.0-80.0); Platelet Count 232 K/mm3 (142-424); Red Blood Count 4.26 M/mm3 (4.60-6.20); White Blood Count 3.5 K/mm3 (4.8-10.8)
[2024-05-21 09:16] LABS: Blood Urea Nitrogen 10 mg/dl (9-20); Carbon Dioxide 23 mmol/L (22.0-30.0); Chloride 109 mmol/L (98-107); Creatinine Clearance Estimated 201 mL/min (50-200); Estimated Glomerular Filt Rate 123 ml/min (>60); GFR (African American) 149 ML/MIN (>60); Glucose 99 mg/dl (74-100); Red Cell Distribution Width 26.2 % (11.5-17.5); Sodium 140 mmol/L (136-145)
[2024-05-21] MEDS: SODIUM PHOS/BIPHOSPHATE FLEET 133ML ENEMA 133 ML RC ×2 (09:31)
[2024-05-21] MEDS: CEFAZOLIN SODIUM 2 GM in 0.9 % SODIUM CHLORIDE 100 ML IV (10:35)
[2024-05-21] MEDS: METRONIDAZ/SOD CHL 500 MG/100 ML PIGGYBACK 100 MG IV (10:35)
--- NOTE | 2024-05-21 10:59 | P.PNANES_ITS ---
[facility] Disclaimer: The information contained in this section may have been updated after the patient was seen, as this information can be updated by other users. Medical History Anemia Stressful life event affecting family Irritable bowel disease Diverticulosis Degenerative disc disease Migraine Surgical History History of colonoscopy H/O hernia repair Family History Other No significant family history Social History Smoking Status: Never smoker second hand exposure: No alcohol intake: current alcohol intake frequency: a few times a month counseling given: No substance use type: denies use current occupational status: employed Travel in the last 8 weeks: None adopted: No caregiver/support person: Yes (for his kids) foster care: No household members: spouse housing: house lives independently: Yes marital status: number of children: 3 number of grandchildren: 0 Hx Recent Travel: No caffeine: Yes physical activity: none nicholas/holiness: Sabianism special nicholas needs: No working smoke detector in home: Yes fire extinguisher in home: Yes carbon monox detector in home: Yes do you feel safe at home: Yes victim of physical abuse: No victim of emotional abuse: No victim of sexual abuse: No would you like helpful sources: No [facility] Anesthesia Checklist Patient Identification Patient Identification: Arm Band Structural Data Admitted From: Home Planned Operative Procedure/s: Exam Under Anesthesia, Hemorrhoidectomy Consent for Planned Operative Procedure(s) Verified: Yes Verified Documents: Surgical Consent and History and Physical NPO Status Verified Time NPO: 00:00 Additional verifications Anesthesia Reactions: No Hx Blood Transfusions: Yes Blood Transfusion Reaction: No Airway Assessment Mallampati Score:: Class II C-Spine Mobility Assessed: Yes TMJ Mobility Assessed: Yes Dentition: Good Dentition Neurological Assessment Level of Consciousness: Awake, Alert and Appropriate Anesthesia Plan Anesthesia Risk discussed: Yes Anesthesia Plan: Verified ASA Class: II Anesthesia Type: General
[2024-05-21] MEDS: LIDOCAINE 1% 20ML MDV 20 ML (11:04)
[2024-05-21] MEDS: HYDROCORTISONE 2.5% CREAM 28GM TUBE TP (11:05)
--- NOTE | 2024-05-21 11:23 | P.OP_ITS ---
Date of procedure: 05/21/24 Pre-op Diagnosis:: Bleeding hemorrhoids Post-op Diagnosis:: Complex prolapsing bleeding internal hemorrhoids with concomitant external hemorrhoidal cushions Procedure performed:: Examination under anesthesia with hemorrhoidectomy Surgeon:: Red Dockery MD DANCE STUDIO MANAGER:: Saturnino Murphy Anesthesia: GETA Estimated blood loss (mL): 15 Operative findings:: Complex polypoid multifocal prolapsing internal posterior/lateral hemorrhoids External hemorrhoidal cushions Operative note:: After informed consent was obtained the patient was taken to the operating room and placed in the supine position. General anesthesia was induced and he was transferred to a modified lithotomy position. His perianal region was prepped and draped in a sterile fashion. Digital rectal exam and inspection revealed complex polypoid multifocal prolapsing internal posterior/lateral hemorrhoids. The more rightward was carefully grasped and elevated. Non-dyed Vicryl suture was placed just distal and secured in position. Electrocautery was utilized to resect this component of hemorrhoidal tissue. The mucosa with reapproximated with locking running suture utilizing the aforementioned Vicryl. An additional external cushion just distal to this site was resected in a similar manner. A somewhat more leftward complex prolapsing hemorrhoid was also resected in a similar manner. All tissue was passed off for pathologic evaluation. Electrocautery was utilized to achieve hemostasis and mucosa was reapproximated with non-dyed Vicryl suture and a running/locking manner. Proctosol-coated Gelfoam was placed in the anal canal. Dressings were applied and the patient was transferred to recovery in stable condition. Condition: stable Disposition: PACU Specimens:: Complex polypoid multifocal prolapsing posterior/lateral hemorrhoids Complications:: No immediate
--- NOTE | 2024-05-21 11:33 | EXP.ANES.I ---
[facility] Anesthesia Record Part I Anesthesia Record I Intake, IV Amount: 800 Hydration: Adequate Estimated blood loss (mL): 10 Urine output (mL): 0 Blood Products used (#): none Blood Pressure: 114/63 SaO2: 91 Pulse Rate: 99 Airway Patency: Patent Respiratory Rate: 16 Temperature: 97.6 F Patient is:: Drowsy and Stable Stable to PACU at:: 11:25
[2024-05-21] MEDS: KETOROLAC 30MG/ML VIAL 30 MG IV (11:53)
[2024-05-21] MEDS: HYDROMORPHONE 2MG/ML SYRINGE 0.5 MG IV ×4 (11:58→12:16)
[2024-05-21] MEDS: MEPERIDINE 25MG/ML 1ML SYRINGE 25 MG IV (12:19)
[2024-05-21] MEDS: ONDANSETRON 4MG/2ML VIAL 4 MG IV (12:19)
--- NOTE | 2024-05-22 09:19 | P.PNANES_ITS ---
[facility] Anesthesia Record Part II Anesthesia Record Part II Discharge Time: 12:25 Destination: Surgical Day Care (OP Surgery) PACU nurse assessment reviewed?: Yes Patient Condition:: Good Anesthesia Complications:: None Swallowing reflex intact?: Yes Airway Patency: Patent Cyanosis?: No Blood Pressure: 138/75 SaO2: 95 Respiratory Rate: 15 Pulse Rate: 93 Temperature: 98.2 F Mental Status: Alert & Oriented Pain level:: 7 Nausea and/or vomitting:: None Intake, IV Amount: 0 Hydration: Adequate
[2024-05-22 09:20] VITALS: BP 138/75; PULSE 93; RESP 15; TEMP 36.8; O2SAT 95
== END 2024-05-21 13:00 | disposition home or self-care (01) ==
PROVIDERS: PCP Internal Medicine; Visit Provider Surgery
PROC: (CPT 46260; principal; 2024-05-21 11:45)
PROC: (CPT 46260; 2024-05-21 11:45)
DX: K64.8 Other hemorrhoids (principal); D64.9 Anemia, unspecified; I10 Essential (primary) hypertension; G43.909 Migraine, unspecified, not intractable, without status migrainosus; R53.83 Other fatigue; R06.09 Other forms of dyspnea; R00.2 Palpitations; K57.90 Diverticulosis of intestine, part unspecified, without perforation or abscess without bleeding
CPT/HCPCS: 46260; 80048; 85025; 96374; J0690; J1100; J1170; J1885; J2175; J2250; J2405; J3010; J7120

== ENCOUNTER 2024-06-08 10:12 | Outpatient (CLI) | payer SELFPAY ==
[2024-06-08 10:41] LABS: Hematocrit 29.9 % (42.0-52.0); Hemoglobin 8.6 g/dL (14.1-18.0)
== END 2024-06-08 23:59 | disposition home or self-care (01) ==
LOC: LAB 10:13
PROVIDERS: PCP Internal Medicine; Visit Provider Surgery
DX: D64.9 Anemia, unspecified (principal)
CPT/HCPCS: 36415; 85014; 85018

== ENCOUNTER 2024-10-01 23:04 | Emergency (ER) | payer OTHER, SELFPAY ==
[2024-10-01 23:06] VITALS: BP 161/102; PULSE 94; RESP 20; TEMP 36.8; O2SAT 98; BMI 32.1
--- NOTE | 2024-10-01 23:30 | ED_ITS ---
Discharge Plan Disposition Patient Disposition: Home, Self-Care Chief Complaint: Skin/Abscess/Foreign Body Prescriptions Prescriptions: New oxycodone 5 mg tablet 5 mg PO Q8H PRN (Reason: pain) Qty: 8 0RF No Action amoxicillin-pot clavulanate 875-125 mg tablet 1 tab PO Q12H 10 Days Qty: 20 0RF ibuprofen 800 mg tablet 800 mg PO Q8H PRN (Reason: pain) Qty: 30 0RF mupirocin 2 % ointment 1 applic topical TID 10 Days Qty: 22 0RF multivitamin [Daily Multi-Vitamin] Tablet 1 tab PO DAILY ascorbate calcium (vitamin C) 500 mg tablet 500 mg PO DAILY Referrals Follow up/Referrals: Ottoniel Goodman DO [Primary Care Provider] - See instructions Activity Restrictions/Add. Instructions Additional Instructions/Restrictions: Please continue medications as previously prescribed. I have sent oxycodone for additional pain control. Please follow-up with your appointment on Tuesday. Clinical Impressions Clinical Impression: Abscess of anal or rectal region Instructions Patient Instructions: DI for Skin Abscess Print Language Print Language: [place] Discharge ED Provider: Roby Graahm General Adult HPI General Chief complaint: Skin/Abscess/Foreign Body Stated complaint: anal abscess, pain Time Seen by Provider: 10/01/24 23:05 Mode of Arrival: Ambulatory Source of Information: Patient Limitations: No Limitations Description of Symptoms (Recalled from ER Triage Doc. by RN): pt reports with an anal abscess, pt was seen by his PCP yesterday and was supposed to follow up with tuesday but the pain became unbearable. History of Present Illness HPI narrative: 43-year-old male with history of hemorrhoids requiring hemorrhoidectomy back in April presents with worsening anal pain. He was seen by his PCP and was told that he likely has a perianal abscess. He has a follow-up appointment scheduled 2 days from now but he does not think he can make it because of the pain. He was prescribed ibuprofen 800s as well as mupirocin ointment, lidocaine cream, Augmentin. He has been taking these as well as Tylenol but the pain is still difficult to bear. Denies any fever or illness. Denies any other symptoms at this time. Reports no bleeding. Related Data Home Medications ?Medication ?Instructions ?Recorded ?Confirmed ascorbate calcium (vitamin C) 500 500 mg PO DAILY 11/29/22 10/01/24 mg tablet multivitamin (Daily Multi-Vitamin 1 tab PO DAILY 11/29/22 10/01/24 tablet) Previous Rx's ?Medication ?Instructions ?Recorded amoxicillin 875 mg-potassium 1 tab PO Q12H 10 days #20 tabs 10/01/24 clavulanate 125 mg tablet ibuprofen 800 mg tablet 800 mg PO Q8H PRN pain #30 tabs 10/01/24 mupirocin 2 % topical ointment 1 applic topical TID 10 days #22 10/01/24 grams oxycodone 5 mg tablet 5 mg PO Q8H PRN pain #8 tabs 10/01/24 Allergies Allergy/AdvReac Type Severity Reaction Status Date / Time No Known Drug Allergies Allergy Unknown Verified 10/01/24 10:01 (NK[facility]) [facility] Disclaimer: The information contained in this section may have been updated after the patient was seen, as this information can be updated by other users. Medical History MDD (major depressive disorder) History of colon polyps Stressful life event affecting family Irritable bowel disease Diverticulosis Degenerative disc disease Migraine Surgical History History of colonoscopy H/O hernia repair Family History Other No significant family history Social History Smoking Status: Never smoker second hand exposure: No alcohol intake: current alcohol intake frequency: a few times a month counseling given: No substance use type: denies use current occupational status: employed Travel in the last 8 weeks: None adopted: No caregiver/support person: Yes (for his kids) foster care: No household members: spouse housing: house lives independently: Yes marital status: number of children: 3 number of grandchildren: 0 Hx Recent Travel: No caffeine: Yes physical activity: none nicholas/jehovah's witness: Druze special nicholas needs: No working smoke detector in home: Yes fire extinguisher in home: Yes carbon monox detector in home: Yes do you feel safe at home: Yes victim of physical abuse: No victim of emotional abuse: No victim of sexual abuse: No would you like helpful sources: No Other Medical History Have you received the Flu Vaccine for this season: No Have you received the Pneumonia Vaccine: No ROS Obtained: Yes All systems reviewed & no additional complaints except as documented Physical Exam General General appearance: alert and in no apparent distress Head Head exam: atraumatic and normocephalic Eye Eye exam: Present normal appearance, PERRL and EOMI ENT ENT exam: Present normal oropharynx and normal external ear exam Neck Neck exam: Present normal inspection and full ROM Chest Chest inspection: Present normal inspection and symmetric chest wall rise; Absent tenderness Respiratory Respiratory exam: Present normal lung sounds bilaterally; Absent respiratory distress Cardiovascular Cardiovascular exam: Present regular rate and normal rhythm Abdominal Exam Abdominal exam: Present soft; Absent distention, tenderness or guarding Rectal Exam comment: Tender fluctuance at approximately the 8o'clock position of the anal sphincter without surrounding cellulitis Extremities Exam Extremities exam: Present normal inspection; Absent edema or joint swelling Back Exam Back exam: Present normal inspection; Absent tenderness Neurological Exam Neurological exam: Present alert and oriented X3; Absent motor sensory deficit Psychiatric Psychiatric exam: Present normal affect and normal mood Skin Skin exam: Present warm, dry and normal color Lymphatic Lymphatic Findings: no adenopathy Medical Decision Making Medical Records Medical records reviewed: Yes I reviewed the patient's medical records. Screening: Per USPSTF and CDC recommendations, given the prevalence of disease in our region, it is our hospital?s policy to screen for HIV and viral Hepatitis for a ll patients aged 18 and over and those with ongoing risk factors. Marv Inquiry Pt receiving controlled substance: No Marv was queried for this patient: No Vital Signs: 10/01/24 23:06 Temperature 98.3 F Temperature Source Oral Pulse Rate [Right] 94 H Respiratory Rate 20 Blood Pressure [Right Arm] 161/102 H Blood Pressure Mean [Right Arm] 121 02 Sat by Pulse Oximetry 98 Oxygen Delivery Method Room Air Lab Data Lab results reviewed: Yes I reviewed the patient's lab results. Orders (Tests/Meds): ED MEDICATIONS Discontinued Medications Generic Name Dose Route Start Last Admin Trade Name Freq PRN Reason Stop Dose Admin Oxycodone HCl 5 mg 10/01/24 23:28 Oxycodone 5mg Immediate Release Tablet PO 10/01/24 23:29 ONCE ONE Medical Decision Narrative: 43-year-old male with history of hemorrhoidectomy earlier this year presents for worsening anal pain, diagnosed with abscess and on pain meds and antibiotics but with worsening pain.. History was obtained via interactive discussion with patient. On arrival, patient is [afebrile, hemodynamically stable, satting appropriately, alert, oriented x4, GCS 15], moving all extremities spontaneously. Full physical exam performed and significant for tender fluctuant lesion at the 8 o'clock position without surrounding cellulitis Differential includes but is not limited to perianal abscess, perirectal abscess, fistula. Patient was given oxycodone for symptomatic management and correction of underlying abnormalities. Blood work, CT imaging, abscess drainage was considered, but given patient is not systemically ill and has rapid follow-up with general surgery in less than 48 hours I think the best course of action is to help control his pain until follow-up for definitive management while continuing his antibiotics as previously prescribed. To this end, he was prescribed a short course of oxycodone with enough to get him to his follow-up appointment with Dr. Dockery. Procedures Risk/Benefits of Procedure(s) Were Explained: Yes Critical Care Critical Care Time Critical Care Time: No
[2024-10-01] MEDS: OXYCODONE 5MG IMMEDIATE RELEASE TABLET 5 MG PO (23:33)
[2024-10-01 23:34] VITALS: BP 136/76; PULSE 82; RESP 16; TEMP 36.8; O2SAT 97
== END 2024-10-01 23:38 | disposition home or self-care (01) ==
PROVIDERS: Emergency Provider Emergency Medicine; PCP Internal Medicine
DX: K61.2 Anorectal abscess (principal); K61.0 Anal abscess
CPT/HCPCS: 99283

== ENCOUNTER 2024-10-11 09:00 | Day surgery (SDC) | payer OTHER, SELFPAY ==
[2024-10-09 16:37] VITALS: BMI 32.1
[2024-10-11] VITALS (12 sets, daily range): BP systolic 115–167; BP diastolic 73–111; PULSE 75–93; RESP 15–18; TEMP 36.4–36.6; O2SAT 93–99
[2024-10-11] MEDS: 0.9 % SODIUM CHLORIDE 1000ML 1,000 ML 25 ML IV (09:26)
--- NOTE | 2024-10-11 09:35 | EXP.ANES.CKL ---
[facility] Disclaimer: The information contained in this section may have been updated after the patient was seen, as this information can be updated by other users. Medical History MDD (major depressive disorder) History of colon polyps Stressful life event affecting family Irritable bowel disease Diverticulosis Degenerative disc disease Migraine Surgical History History of banding of hemorrhoid History of colonoscopy H/O hernia repair Family History Other No significant family history Social History Smoking Status: Never smoker second hand exposure: No alcohol intake: current alcohol intake frequency: a few times a month counseling given: No substance use type: denies use current occupational status: employed Travel in the last 8 weeks: None adopted: No caregiver/support person: Yes (for his kids) foster care: No household members: spouse housing: house lives independently: Yes marital status: number of children: 3 number of grandchildren: 0 Hx Recent Travel: No caffeine: Yes physical activity: none nicholas/shinto: Faith special nicholas needs: No working smoke detector in home: Yes fire extinguisher in home: Yes carbon monox detector in home: Yes do you feel safe at home: Yes victim of physical abuse: No victim of emotional abuse: No victim of sexual abuse: No would you like helpful sources: No Have you lived/traveled outside [place] in past 30 days?: No Contact w/someone who lives/traveled outside US past 30 days?: No Exposure to someone with infectious disease in past 14 days?: No Do you have a fever (greater than 100.4 F or 38 C)?: No Have you tested positive for COVID-19: No Exposed to someone with COVID-19 in past 14 days?: No Do you have a sore throat?: No Do you have a cough?: No Do you have any weakness?: No Do you have any diarrhea?: No Are you experiencing any unusual bleeding?: No Do you have any muscle aches/pain?: No Do you have any abdominal pain?: No Are you experiencing loss of taste or smell?: No [facility] Anesthesia Checklist Patient Identification Patient Identification: Arm Band Structural Data Admitted From: Home Planned Operative Procedure/s: EUA, Possible Seton Placement, Possible I&D Perianal Abscess Consent for Planned Operative Procedure(s) Verified: Yes Verified Documents: Surgical Consent and History and Physical NPO Status Verified Time NPO: 00:00 Additional verifications Anesthesia Reactions: No Hx Blood Transfusions: Yes Blood Transfusion Reaction: No Airway Assessment Mallampati Score:: Class II C-Spine Mobility Assessed: Yes TMJ Mobility Assessed: Yes Dentition: Good Dentition Neurological Assessment Level of Consciousness: Awake, Alert and Appropriate Anesthesia Plan Anesthesia Risk discussed: Yes Anesthesia Plan: Verified ASA Class: II Anesthesia Type: General
[2024-10-11 09:41] LABS: Chloride 108 mmol/L (98-107)
[2024-10-11 09:42] LABS: Potassium 5.1 mmoL/L (3.5-5.1); Sodium 137 mmol/L (136-145)
[2024-10-11 09:44] LABS: Blood Urea Nitrogen 11 mg/dl (9-20); Creatinine Clearance Estimated 176 mL/min (50-200); Estimated Glomerular Filt Rate 106 ml/min (>60); GFR (African American) 128 ML/MIN (>60)
[2024-10-11 09:45] LABS: Anion Gap 7.1 mEq/L (5-15); Carbon Dioxide 27 mmol/L (22.0-30.0); Glucose 91 mg/dl (74-100)
[2024-10-11 10:08] LABS: Hematocrit 47.8 % (42.0-52.0); Hemoglobin 14.8 g/dL (14.1-18.0); Mean Corpuscular Hemoglobin 22.6 pg (27.0-31.2); Mean Corpuscular Volume 73.1 fl (80-94); Red Blood Count 6.54 M/mm3 (4.60-6.20); White Blood Count 5.1 K/mm3 (4.8-10.8)
[2024-10-11 10:09] LABS: Platelet Count 194 K/mm3 (142-424); Red Cell Distribution Width 23.9 % (11.5-17.5)
[2024-10-11 10:12] LABS: Basophils % 0.6 % (0.1-2.0); Eosinophils # 0.1 K/mm3 (0.0-0.4); Eosinophils % 1.6 % (0.1-12.0); Lymphocytes # 2.1 K/mm3 (0.7-4.5); Lymphocytes % 40.5 % (10-50); Monocytes # 0.4 K/mm3 (0.1-1.0); Monocytes % 7.8 % (1.7-9.3); Neutrophils # 2.5 K/mm3 (1.8-7.8); Neutrophils % 49.3 % (37.0-80.0)
[2024-10-11] MEDS: METRONIDAZ/SOD CHL 500 MG/100 ML PIGGYBACK 100 MG IV (10:14)
[2024-10-11] MEDS: CEFAZOLIN SODIUM 2 GM in 0.9 % SODIUM CHLORIDE 100 ML IV (10:14)
[2024-10-11] MEDS: LIDOCAINE 1% 20ML MDV 20 ML (10:33)
--- NOTE | 2024-10-11 10:44 | P.OP_ITS ---
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 General anesthesia with laryngeal mask airway was achieved and he was transferred to a modified lithotomy position. His perianal region was prepped and draped in a sterile fashion. Inspection and palpation revealed a right posterior/lateral fistula in ano with transsphincte rand projection. The patient's abscess was essentially resolved status post spontaneous drainage. Minimal inflammatory response/induration noted. Silk suture was secured in the form of a seton through the fistulous tract. Dressings were applied and the patient was transferred to recovery in stable condition after removal of his laryngeal mask airway. Condition: stable Disposition: PACU Specimens:: None Complications:: No immediate
--- NOTE | 2024-10-11 10:49 | P.PNANES_ITS ---
[facility] Anesthesia Record Part I Anesthesia Record I Intake, IV Amount: 400 Hydration: Adequate Estimated blood loss (mL): 5 Urine output (mL): 0 Blood Products used (#): none Blood Pressure: 115/73 SaO2: 93 Pulse Rate: 80 Airway Patency: Patent Respiratory Rate: 16 Temperature: 97.8 F Patient is:: Drowsy and Stable Stable to PACU at:: 10:45
[2024-10-11] MEDS: HYDROMORPHONE 2MG/ML SYRINGE 0.5 MG IV ×4 (11:00→11:22)
[2024-10-11] MEDS: MORPHINE 2MG/ML SYRINGE 2 MG IV ×3 (11:25→11:40)
[2024-10-11 11:40] LABS: Mean Platelet Volume 10.2 fl (7.4-10.4)
--- NOTE | 2024-10-11 11:56 | P.PNANES_ITS ---
[facility] Anesthesia Record Part II Anesthesia Record Part II Discharge Time: 11:35 Destination: Surgical Day Care (OP Surgery) PACU nurse assessment reviewed?: Yes Patient Condition:: Good Anesthesia Complications:: None Swallowing reflex intact?: Yes Airway Patency: Patent Cyanosis?: No Blood Pressure: 154/111 SaO2: 98 Respiratory Rate: 18 Pulse Rate: 85 Temperature: 97.5 F Mental Status: Alert & Oriented Pain level:: 5 Nausea and/or vomitting:: None Intake, IV Amount: 0 Hydration: Adequate
== END 2024-10-11 12:15 | disposition home or self-care (01) ==
PROVIDERS: PCP Internal Medicine; Visit Provider Surgery
PROC: (CPT 46020; principal; 2024-10-11 10:35)
DX: K61.2 Anorectal abscess (principal); K61.0 Anal abscess
CPT/HCPCS: 46020; 80048; 85025; 96374; J0690; J1100; J1171; J1885; J2250; J2270; J2405; J3010; J7030

== ENCOUNTER 2024-10-31 13:18 | Outpatient (CLI) | payer OTHER, SELFPAY ==
--- NOTE | 2024-10-31 13:22 | XR_ITS ---
FINAL REPORT CLINICAL HISTORY: Neck pain/numbness COMPARISON: None FINDINGS: CERVICAL SPINE: AP, lateral and odontoid views of the cervical spine were obtained. There is no prior exam for comparison. There is no acute fracture. There is mild reversal of the normal cervical lordosis. Vertebral body height is preserved. The precervical soft tissues are normal. IMPRESSION: Mild reversal of the normal cervical lordosis without acute bony abnormality identified. Reviewed, Interpreted and Dictated by Surya Upton MD Transcribed by Gisel Gonzalez Authenticated and [facility]
== END 2024-10-31 23:59 | disposition home or self-care (01) ==
LOC: RAD 13:19
PROVIDERS: PCP Internal Medicine; Visit Provider Internal Medicine
DX: M54.12 Radiculopathy, cervical region (principal)
CPT/HCPCS: 72040